=== PATIENT | male | born 1950 | race Caucasian/White ===

== ENCOUNTER → 2017-12-14 | Outpatient (REF) | payer MEDICARE ==
[2017-12-14 14:18] LABS: URIC ACID 3.7 MG/DL (3.5-7.2)
== END ==
LOC: M LAB REF 13:35
DX: M10.9 Gout, unspecified (principal)
CPT/HCPCS: 84550

== ENCOUNTER 2018-06-09 18:45 | Inpatient (IN) | payer MEDICARE ==
[~2018-06-09] VITALS: Ht 177.8 cm; Wt 145.6 kg
[~2018-06-09 18:45] MED LIST: ASPI325T25 PO; CALCTAB68 PO; CARV25TA PO; CYCL10TA PO; DIAZ5TAB PO; JANU100T PO; MAGN64TASA PO; METF10004 PO; MIRA3350 PO; OMEP20CA3 PO; PERC5TAB12 PO; REST0.05 OP; SENO8.6T5 PO; SIMV40TA2 PO; VITA100072 PO; VITMTA PO; ZYLO300T6 PO
[2018-06-09] MEDS ORDERED: NS 1,000 ML IV SCH ×2 (19:22→23:25)
[2018-06-09] MEDS ORDERED: ONDANSETRON 4MG/2ML VIAL (J2405) IV ONE (19:30)
[2018-06-09] MEDS ORDERED: MORPHINE 2 MG/ML 1ML SYRINGE (J2270) IV ONE (19:30)
[2018-06-09] MEDS ORDERED: KETOROLAC 30 MG/ML VIAL (J1885) IV ONE (19:30)
[2018-06-09 19:53] LABS: BASO # 0.1 10^3/uL (0.0-0.2); BASO % 0.5 % (0.0-1.0); EOS # 0.2 10^3/uL (0.0-0.50); EOS % 1.2 % (0.0-3.0); HEMATOCRIT 44.2 % (42.0-52.0); HEMOGLOBIN 14.3 g/dl (13.5-17.5); LYMPH # 2.1 10^3/uL (1.5-4.5); LYMPH % 13.5 % (24.0-44.0); MEAN CORPUSCULAR HEMOGLOBIN 30.4 pg (27.0-33.0); MEAN CORPUSCULAR HGB CONC 32.4 g/dl (32.0-36.5); MONO # 0.6 10^3/uL (0.0-0.8); NEUTROPHILS # 12.4 10^3/uL (1.8-7.7); NEUTROPHILS % 80.4 % (36.0-66.0); PLATELET COUNT, AUTOMATED 272 10^3/uL (150-450); WHITE BLOOD COUNT 15.4 10^3/uL (4.0-10.0)
[2018-06-09] MEDS ORDERED: AMAR1TAB PO (20:00)
--- NOTE | 2018-06-09 20:20 | REPVR ---
EXAM: CT Abdomen and Pelvis Without Contrast EXAM DATE/TIME: 06/09/2018 7:41 PM CLINICAL HISTORY: 67 years old, male; Pain; Abdominal pain; Flank; Right; Prior surgery; Surgery date: 6+ months; Surgery type: Bariatric bypass, hip; Additional info: Left renal colic TECHNIQUE: Imaging protocol: Axial computed tomography images of the abdomen and pelvis without contrast. Coronal and sagittal reformatted images were created and reviewed. Radiation optimization: All CT scans at this facility use at least one of these dose optimization techniques: automated exposure control; mA and/or kV adjustment per patient size (includes targeted exams where dose is matched to clinical indication); or iterative reconstruction. COMPARISON: CT ABD PELVIS W/O CONTRAST 08/16/2014 7:19 AM FINDINGS: Lower thorax: Small tree in bud opacity right lower lobe likely indicates age indeterminate alveolitis. ABDOMEN: Liver: Normal. No mass. Gallbladder and bile ducts: Gravel layers dependently within the lumen of the gallbladder. No gallbladder wall thickening. Pancreas: Normal. No ductal dilation. Spleen: Normal. No splenomegaly. Adrenals: Normal. No mass. Kidneys and ureters: Bilateral nonobstructive renal calculi. Right renal cyst measures 2.5 centimeters. There is are several calculi demonstrated in the proximal right ureter including an obstructive calculus measuring 10 millimeters resulting in moderate proximal hydroureteronephrosis. There is periureteral and perinephric stranding. Small amount of perinephric fluid may indicate a small urinoma. Stomach and bowel: This patient is status post gastric bypass surgery. Appendix: No evidence of appendicitis. PELVIS: Bladder: Unremarkable as visualized. Reproductive: Unremarkable as visualized. ABDOMEN and PELVIS: Intraperitoneal space: Hazy increased density in the central mesentery with mesenteric adenopathy measuring up to 11 millimeters. Findings can be demonstrated in association with mesenteric panniculitis in the appropriate clinical setting. Bones/joints: Status post left hip replacement. Moderate to severe central spinal stenosis and L3-4 and a severe spinal stenosis at L4-5. Bulging annulus L5-S1. Soft tissues: Unremarkable. Vasculature: The aorta demonstrates moderate atherosclerotic calcification. Lymph nodes: Normal. No enlarged lymph nodes. IMPRESSION: 1. Gravel layers dependently within the lumen of the gallbladder. No gallbladder wall thickening. 2. This patient is status post gastric bypass surgery. 3. There is are several calculi demonstrated in the proximal right ureter including an obstructive calculus measuring 10 millimeters resulting in moderate proximal hydroureteronephrosis. There is periureteral and perinephric stranding. Small amount of perinephric fluid may indicate a small urinoma. 4. Hazy increased density in the central mesentery with mesenteric adenopathy measuring up to 11 millimeters. Findings can be demonstrated in association with mesenteric panniculitis in the appropriate clinical setting. Electronically signed by: Ant Jarrell On 06/09/2018 20:20:04 PM
[2018-06-09 20:26] LABS: ALBUMIN 3.8 GM/DL (3.2-5.2); BILIRUBIN,DIRECT 0.2 MG/DL (0.0-0.2); BILIRUBIN,TOTAL 0.6 MG/DL (0.2-1.0); CREATININE FOR GFR 1.68 MG/DL (0.70-1.30); GLOMERULAR FILTRATION RATE 43.6 (>49); POTASSIUM SERUM 4.6 MEQ/L (3.5-5.1); TOTAL PROTEIN 7.3 GM/DL (6.4-8.2)
[2018-06-09] MEDS ORDERED: ASPI1TAB PO (22:49)
[2018-06-09] MEDS ORDERED: OCUVCAP2 PO (22:49)
[2018-06-09] MEDS ORDERED: FLAX10002 PO (22:49)
[2018-06-09] MEDS ORDERED: MORPHINE 4 MG/ML 1ML VIAL/SYRINGE (J2270) IV ONE (23:00)
[2018-06-09] MEDS ORDERED: ACETAMINOPHEN TAB 650MG DOSE (2X325MG) PO PRN (23:30)
[2018-06-09] MEDS ORDERED: MORPHINE 4 MG/ML 1ML VIAL/SYRINGE (J2270) IV PRN (23:30)
[2018-06-09] MEDS ORDERED: ONDANSETRON 4 MG TAB (S0181) PO PRN (23:30)
[2018-06-10] VITALS (9 sets, daily range): BP systolic 123–166; BP diastolic 64–87
[2018-06-10] MEDS: PERCOCET 5MG/325MG TAB PO PRN ×2 (01:59→09:22)
[2018-06-10] MEDS: CARVedilol 12.5 MG TAB PO SCH ×3 (02:00→20:36)
[2018-06-10] MEDS ORDERED: GLUCAGON FOR INJ 1 MG VIAL (J1610) SC PRN ×2 (04:45→18:45)
[2018-06-10] MEDS ORDERED: DEXTROSE 50% 50 ML SYRINGE IV PRN ×2 (04:45→18:45)
[2018-06-10] MEDS ORDERED: GLUCOSE 4 GM CHEW TABLET PO PRN ×2 (04:45→18:45)
--- NOTE | 2018-06-10 04:46 | HPEPDOC ---
[facility] Medical History & Physical Date of Admission Jun 09, 2018 History and Physical CHIEF COMPLAINT: [left sided abd pain ] HISTORY OF PRESENT ILLNESS: This is a 67 yo male with multiple pmhx listed below, who came in for severe left sided/flank pain 12/28 that started today, started in the flank and radiated towards the groin area. Associated symptoms include nausea, dry heaves, chills and sweat, but denied fever, headache, change in vision, dysuria, hematuria, diarrhea or constipation. He also complain of epigastric pain, which is chronic. Ros - all 14 point negative except for what's in HPI. 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 Previously smoke 2 and 1/2 ppd since age 12 ETOH: Denies Illicit Drugs: Denies No advanced directives in place FAMHX: Mother: age 38 secondary to OH. Hx of rheumatic fever Father: age 77 secondary to alcoholic cirrhosis Siblings: one sister age 70 secondary to CHF, morbid obesity, and DM. one brother age 72 secondary to unknown cause. one sister alive and well Physical Exam GEN: NAD , normal built HEENT: normocephalic, atraumatic, PERRLA, EOMI, external ears appears normal, neck supple, no pharyngeal erythema CVS : normal S1, S2 no murmur, rubs or gallops , PMI nondisplaced RESP: no rals, rhonchi, crackles, or wheezes, LCTAB ABD - +BS, soft, very tender in the left side of his abd and left flank, ND , ve ry obese abd , epigastric tenderness MSK no joint swelling, FROM, no muscle tenderness Neuro no focal deficit, AOAX3 Lymphatics- no lymphedema, no lymphadenopathy in cervical and supraclavicular chains Psych- normal mood and affect, good judgement and insight LABORATORY DATA: See below. IMAGING: [reviewed- ct abd and pelvis - IMPRESSION: 1. Gravel layers dependently within the lumen of the gallbladder. No gallbladder wall thickening. 2. This patient is status post gastric bypass surgery. 3. There is are several calculi demonstrated in the proximal right ureter including an obstructive calculus measuring 10 millimeters resulting in moderate proximal hydroureteronephrosis. There is periureteral and perinephric stranding. Small amount of perinephric fluid may indicate a small urinoma. 4. Hazy increased density in the central mesentery with mesenteric adenopathy measuring up to 11 millimeters. Findings can be demonstrated in association with mesenteric panniculitis in the appropriate clinical setting. ] MICROBIOLOGY: Please see below. ASSESSMENT and PLAN ct abd report stated stone in right ureter- based on my read the obstructive st one seems to be in the left, which correlates with with his symptoms - ivf -prn pain meds -zofran prn ' -urine is negative for UTI, will continue to monitor off abx -urologist already was consult by ED, will place official consult order DM2- hold po meds, will start iss and order hypoglycemic protocol hold aspirin for anticipated procedure tomorrow dvt ppx gi ppx full code, from home Vital Signs Vital Signs Date Time Temp Pulse Resp B/P (MAP) Pulse Ox O2 Delivery O2 Flow Rate FiO2 06/09/18 23:06 16 06/09/18 19:30 06/09/18 18:45 96.6 72 98 Room Air Laboratory Data Labs 24H Laboratory Tests 2 06/09/18 19:38: Immature Granulocyte % (Auto) 0.4, White Blood Count 15.4H, Red Blood Count 4.70, Hemoglobin 14.3, Hematocrit 44.2, Mean Corpuscular Volume 94.0, Mean Corpuscular Hemoglobin 30.4, Mean Corpuscular Hemoglobin Concent 32.4, Red Cell Distribution Width 13.7, Platelet Count 272, Neutrophils (%) (Auto) 80.4H, Lymphocytes (%) (Auto) 13.5L, Monocytes (%) (Auto) 4.0, Eosinophils (%) (Auto) 1.2, Basophils (%) (Auto) 0.5, Neutrophils # (Auto) 12.4H, Lymphocytes # (Auto) 2.1, Monocytes # (Auto) 0.6, Eosinophils # (Auto) 0.2, Basophils # (Auto) 0.1, Nucleated Red Blood Cells % (auto) 0.0, Urine Color YELLOW, Urine Appearance CLEAR, Urine pH 5.0, Urine Specific [place] 1.012, Urine Protein 1+H, Urine Glucose (UA) 1+H, Urine Ketones TRACEH, Urine Blood 2+H, Urine Nitrite NEGATIVE, Urine Bilirubin NEGATIVE, Urine Urobilinogen 0.2, Urine Leukocyte Esterase NEGATIVE, Urine WBC (Auto) 0, Urine RBC (Auto) 5H, Urine Hyaline Casts (Auto) 0, Urine Bacteria (Auto) NEGATIVE, Urine Squamous Epithelial Cells 1, Urine Sperm (Auto) , Anion Gap 10, Glomerular Filtration Rate 43.6L, Calcium Level 9.0, Aspartate Amino Transf (AST/SGOT) 22, Alanine Aminotransferase (ALT/SGPT) 32, Alkaline Phosphatase 131H, Total Bilirubin 0.6, Direct Bilirubin 0.2, Total Prot ein 7.3, Albumin 3.8, Albumin/Globulin Ratio 1.09, Lipase 369 CBC/BMP Laboratory Tests 06/09/18 19:38 Red Blood Count 4.70, Mean Corpuscular Volume 94.0, Mean Corpuscular Hemoglobin 30.4, Mean Corpuscular Hemoglobin Concent 32.4, Red Cell Distribution Width 13.7, Neutrophils (%) (Auto) 80.4 H, Lymphocytes (%) (Auto) 13.5 L, Monocytes (%) (Auto) 4.0, Eosinophils (%) (Auto) 1.2, Basophils (%) (Auto) 0.5, Neutrophils # (Auto) 12.4 H, Lymphocytes # (Auto) 2.1, Monocytes # (Auto) 0.6, Eosinophils # (Auto) 0.2, Basophils # (Auto) 0.1 Home Medications Scheduled (Flax Seed Oil 1000 mg) 1 Cap Cap, 1 CAP PO DAILY Allopurinol (Zyloprim) 300 Mg Tab, 300 MG PO DAILY Aspirin (Aspirin 81) 81 Mg Tab, 81 MG PO QHS Calcium/Vitamin D (Calcium 600 + D 600-400 mg-Unit) 1 Tab Tab, 1 TAB PO DAILY Carvedilol (Carvedilol) 25 Mg Tab, 50 MG PO QAM Carvedilol (Carvedilol) 25 Mg Tab, 25 MG PO QPM Cyanocobalamin (Vitamin B12) 1,000 Mcg Tab, 2,000 MCG PO DAILY Glimepiride (Amaryl) 1 Mg Tab, 1 MG PO DAILY Magnesium Chloride (Mag64) 64 Mg Tabcr, 64 MG PO BID Metformin Hydrochloride (Metformin HCl) 1,000 Mg Tab, 1,000 MG PO BID Multivitamins (Ocuvite Adult 50+) 1 Cap Cap, 1 CAP PO DAILY Multivitamins *[facility] STOCKED* (Thera M Plus *[facility] STOCKED*) 1 Tab Tab, 2 TAB PO DAILY Simvastatin - High Dose (Simvastatin) 40 Mg Tab, 40 MG PO QHS Sitagliptin Phosphate (Januvia) 100 Mg Tab, 100 MG PO DAILY Allergies Coded Allergies: No Known Allergies (Verified , 07/18/05) DANIEL MONTGOMERY MD Jun 09, 2018 23:36
[2018-06-10] MEDS: HEPARIN SOD (PORCINE) 5000 UNITS/ML VIAL SC SCH ×3 (05:41→20:35)
[2018-06-10 06:33] LABS: BASO # 0.1 10^3/uL (0.0-0.2); BASO % 0.4 % (0.0-1.0); EOS # 0.2 10^3/uL (0.0-0.50); EOS % 1.7 % (0.0-3.0); HEMATOCRIT 37.7 % (42.0-52.0); HEMOGLOBIN 12.4 g/dl (13.5-17.5); LYMPH # 2.5 10^3/uL (1.5-4.5); LYMPH % 20.9 % (24.0-44.0); MEAN CORPUSCULAR HEMOGLOBIN 30.8 pg (27.0-33.0); MEAN CORPUSCULAR HGB CONC 32.9 g/dl (32.0-36.5); MEAN CORPUSCULAR VOLUME 93.8 fl (80.0-96.0); MONO # 1.2 10^3/uL (0.0-0.8); MONO % 9.9 % (0.0-5.0); NEUTROPHILS # 8.1 10^3/uL (1.8-7.7); NEUTROPHILS % 66.7 % (36.0-66.0); PLATELET COUNT, AUTOMATED 217 10^3/uL (150-450); RED BLOOD COUNT 4.02 10^6/uL (4.30-6.10); WHITE BLOOD COUNT 12.2 10^3/uL (4.0-10.0)
[2018-06-10 06:54] LABS: CALCIUM LEVEL 8.5 MG/DL (8.8-10.2); CREATININE FOR GFR 1.95 MG/DL (0.70-1.30); GLOMERULAR FILTRATION RATE 36.7 (>49); MAGNESIUM LEVEL 1.8 MG/DL (1.8-2.4)
[2018-06-10] MEDS ORDERED: HumaLOG INSULIN (NovoLOG) PER UNIT SC SCH (07:30)
[2018-06-10] MEDS ORDERED: LR 1,000 ML IV SCH ×2 (08:15→19:00)
[2018-06-10] MEDS ORDERED: ALLOPURINOL 300 MG TAB PO SCH (09:00)
[2018-06-10] MEDS: MULTIVITAMINS/MINERALS THERAP 1 TAB PO SCH (09:09)
[2018-06-10] MEDS: PANTOPRAZOLE 40MG TAB (PROTONIX) PO SCH (09:10)
[2018-06-10] MEDS: SENOKOT S TAB PO SCH ×2 (09:10→20:36)
[2018-06-10] MEDS: OCUVITE 1 TAB PO SCH (09:11)
[2018-06-10] MEDS: CIPROFLOXACIN 200 MG in APPROPRIATE DILUENT 1 EA IV SCH ×2 (10:52→23:19)
[2018-06-10] MEDS: HumaLOG INSULIN (NovoLOG) PER UNIT SC SCH ×3 (12:00→20:37)
[2018-06-10] MEDS ORDERED: CONRAY-60 60% 50ML VIAL (Q9961) As Ordered ONE (13:27)
[2018-06-10 14:46] LABS: CALCIUM LEVEL 8.1 MG/DL (8.8-10.2); CREATININE FOR GFR 2.08 MG/DL (0.70-1.30); GLOMERULAR FILTRATION RATE 34.1 (>49); POTASSIUM SERUM 4.1 MEQ/L (3.5-5.1)
--- NOTE | 2018-06-10 14:46 | CR ---
DATE OF CONSULTATION: 06/10/2018 ROOM NUMBER: [id number] CONCLUSIONS: 1. Multiple left proximal ureteral calculi with obstruction, largest 1 cm in diameter. 2. Jmo-zlzxlkx-stfxgmzxq diabetes mellitus. 3. Coronary artery disease, status post pacemaker defibrillator placement. 4. Hypertension. 5. History of gout. 6. Morbid obesity with history of prior gastric bypass surgery. 7. Gastroesophageal reflux disease (GERD). RECOMMENDATIONS: I discussed the situation with the patient and explained the option to proceed with cystoscopy and placement of a left internal ureteral catheter to decompress the left collecting system to eliminate his pain. I explained that subsequent Extracorporeal shock wave lithotripsy (ESWL) can be carried out as an outpatient procedure, but that this procedure is not immediately available. I explained the technique of the procedure to the patient, along with the benefits, risks, alternatives, possible adverse effects. He wishes to go ahead and proceed with this today. DISCUSSION: The patient is a 67-year-old male with a prior history of renal calculi, who estimates that he has passed two kidney stones and has undergone ESWL on another occasion. Yesterday he had severe left flank pain with nausea and vomiting. He presented to the emergency room and a CT scan was performed, which demonstrates multiple calculi in the left proximal ureter, the largest is approximately 1 cm in diameter. He also has small bilateral nonobstructing renal calculi present. His pain has been poorly controlled since admission. He has noted no gross hematuria. He has had no fever. He has no history of urinary tract infection (UTI). PHYSICAL EXAMINATION: The patient is a large-framed, obese male lying in bed. No apparent distress, but feels costovertebral angle tenderness. Abdomen is grossly obese, soft and nontender. External genitalia: Normal male. LABORATORY RESULTS: Urinalysis is not suspicious for infection. Urinalysis showed a pH of 5, specific gravity 1.02, 1+ protein, 1+ glucose, 2+ hemoglobin, negative nitrate, negative esterase, 5 red cells per high powered field, no white cells. Negative bacteria. Serum creatinine is 1.68, BUN 22. White blood cell count on admission was 15,400, hemoglobin 14.3 grams, hematocrit 44.2%. Thank you for asking me to see this patient in consultation. We will follow him with you daily.
[2018-06-10] MEDS ORDERED: MIDAZOLAM INJ 2 MG/2 ML VIAL (J2250) As Ordered ONE (15:06)
[2018-06-10] MEDS ORDERED: PROPOFOL 200 MG/20 ML VIAL As Ordered ONE (15:06)
[2018-06-10] MEDS ORDERED: dexameTHASONE 4 MG/ML 1ML VIAL (J1100) As Ordered ONE (15:06)
[2018-06-10] MEDS ORDERED: LIDOCAINE 2% INJ 100 MG/5 ML SDV (FOR ANES.) As Ordered ONE (15:06)
[2018-06-10] MEDS ORDERED: ONDANSETRON 4MG/2ML VIAL (J2405) As Ordered ONE (15:06)
[2018-06-10] MEDS ORDERED: fentaNYL 100 MCG/2 ML INJECTION (J3010) As Ordered ONE (15:06)
[2018-06-10] MEDS ORDERED: ROCURONIUM BROMIDE 50 MG/5 ML VIAL As Ordered ONE (15:06)
[2018-06-10] MEDS ORDERED: SUCCINYLCHOLINE 100 MG/5 ML SYRINGE (J0330) As Ordered ONE (15:06)
[2018-06-10] MEDS ORDERED: ePHEDrine SULFATE 25 MG/5 ML(5MG/ML) SYRINGE As Ordered ONE (15:09)
[2018-06-10] MEDS ORDERED: PHENYLephrine HCL 500 MCG/5 ML (100MCG/ML) SYRINGE (J2370) As Ordered ONE (15:09)
[2018-06-10] MEDS: POTASSIUM CITRATE 1080 MG (10MEQ) TAB PO SCH (17:39)
[2018-06-10] MEDS: ASPIRIN 81 MG ENTERIC TAB PO SCH (20:36)
[2018-06-10] MEDS: SIMVASTATIN 40 MG TAB PO SCH (20:36)
[2018-06-11 02:00] VITALS: BP 136/60
[2018-06-11 05:46] LABS: HEMATOCRIT 40.2 % (42.0-52.0); HEMOGLOBIN 13.1 g/dl (13.5-17.5); MEAN CORPUSCULAR HEMOGLOBIN 30.1 pg (27.0-33.0); MEAN CORPUSCULAR HGB CONC 32.6 g/dl (32.0-36.5); MEAN CORPUSCULAR VOLUME 92.4 fl (80.0-96.0); PLATELET COUNT, AUTOMATED 228 10^3/uL (150-450); RED BLOOD COUNT 4.35 10^6/uL (4.30-6.10); WHITE BLOOD COUNT 10.5 10^3/uL (4.0-10.0)
[2018-06-11] MEDS: HEPARIN SOD (PORCINE) 5000 UNITS/ML VIAL SC SCH ×3 (05:49→22:09)
[2018-06-11 06:00] VITALS: BP 150/71
[2018-06-11 06:04] LABS: ALBUMIN 3.1 GM/DL (3.2-5.2); CALCIUM LEVEL 8.9 MG/DL (8.8-10.2); CREATININE FOR GFR 1.82 MG/DL (0.70-1.30); GLOMERULAR FILTRATION RATE 39.8 (>49); PHOSPHORUS LEVEL 3.3 MG/DL (2.5-4.9); POTASSIUM SERUM 4.7 MEQ/L (3.5-5.1)
[2018-06-11] MEDS: POTASSIUM CITRATE 1080 MG (10MEQ) TAB PO SCH ×2 (08:44→17:49)
[2018-06-11] MEDS: HumaLOG INSULIN (NovoLOG) PER UNIT SC SCH ×4 (08:44→21:00)
[2018-06-11] MEDS: OCUVITE 1 TAB PO SCH (08:46)
[2018-06-11] MEDS: CARVedilol 12.5 MG TAB PO SCH ×2 (08:46→21:22)
[2018-06-11] MEDS: SENOKOT S TAB PO SCH ×2 (08:46→21:21)
[2018-06-11] MEDS: MULTIVITAMINS/MINERALS THERAP 1 TAB PO SCH (08:46)
[2018-06-11] MEDS: PANTOPRAZOLE 40MG TAB (PROTONIX) PO SCH (08:46)
[2018-06-11] MEDS: LEVEMIR (INSULIN DETEMIR) 1 UNITS/0.01ML SC SCH (08:48)
[2018-06-11] MEDS: PERCOCET 5MG/325MG TAB PO PRN ×2 (08:49→15:44)
--- NOTE | 2018-06-11 09:31 | IPN ---
DATE OF SERVICE: 06/10/2018 The patient seen and examined. Reported pain mildly improved. Reported left-sided flank pain mildly improved after Percocet. Denies any chest pain, pressure, or discomfort. Denies any fevers or chills. VITAL SIGNS: Temperature 97.1, pulse 68, respiration 18, blood pressure 166/78, pulse oximetry 96% on room air. LABORATORY: WBC 12.2, hemoglobin and hematocrit 12.4/37.7, platelets 217. Chemistry: Sodium 138, potassium 4.1, chloride 107, bicarbonate 23, BUN 22, creatinine 2.08. PHYSICAL EXAMINATION: GENERAL: The patient obese, comfortable, in no acute distress. HEENT: Normocephalic, atraumatic. PULMONARY: Bilaterally clear. CARDIAC: Regular S1, S2. No rubs, gallops, or murmurs. ABDOMEN: Soft. Left-sided tenderness and left flank pain. Obese. EXTREMITIES: No edema in bilateral lower extremities. ASSESSMENT AND PLAN: This is a 67-year-old male patient with underlying medical history of noninsulin-dependent diabetes mellitus, coronary arterial disease with myocardial infarction ([place]) in 1994 and 2002, dyslipidemia, hypertension, gout, ureterolithiasis, morbid obesity, gastroesophageal reflux disease (GERD), presented with left-sided flank pain and left-sided abdominal pain, diagnosed with nephrolithiasis and obstructing stone. PROBLEMS: 1. Nephrolithiasis with obstructing uropathy due to stone. Pain medication. Intravenous (IV) fluids. Urology has been consulted. Urinalysis (UA) has been negative. Cipro for now. Will be undergoing cystoscopy with stent placement. Advance diet as tolerated. 2. Chronic renal insufficiency. IV fluids. Likely secondary to obstructive uropathy. Avoid nephrotoxic agent. IV fluids have been ordered. Will monitor clinically. 3. Diabetes type 2. Holding oral medication. Insulin as ordered. Consistent-carbohydrate diet. Follow fingersticks. 4. Coronary arterial disease. Continue aspirin, Coreg, statin. Outpatient followup. 5. Gastroesophageal reflux disease. Continue proton pump inhibitor (PPI). 6. Deep venous thrombosis (DVT) prophylaxis. Heparin subcutaneously. 7. Gout. Holding allopurinol given worsening kidney function. Will monitor closely. DISPOSITION: Disposition per urology. Clinical improvement. 8. Obesity, complicating care. Obstructive sleep apnea (DEISI) protocol is observed. [facility]
--- NOTE | 2018-06-11 09:42 | IPNPDOC ---
Subjective Date Seen The patient was seen on 06/11/18. Subjective Chief Complaint/HPI He has had no flank pain post procedure, he does have some dysuria. I explained that this is not unusual and will improve Objective Physical Examination General Exam: Positive: Other (male in bed in no apparent distress, conversive) Assessment /Plan Assessment 1 Left ureteral calculi , post placement of left internal ureteral catheter to relieve pain and obstruction, possibly uric acid in composition, discussed importance of increased hydration and alkalinization of urine with potassium citrate and baking soda supplements Plan/VTE VTE Prophylaxis Ordered?: Yes Disposition May be discharged at any time from urologic standpoint, advised follow up in Urology office later this week VS, I&O, 24H, Fishbone Vital Signs/I&O Vital Signs Date Time Temp Pulse Resp B/P (MAP) Pulse Ox O2 Delivery O2 Flow Rate FiO2 06/11/18 08:49 18 06/11/18 08:46 66 150/71 06/11/18 06:00 97.1 95 06/10/18 15:15 2 06/10/18 00:24 Room Air I&O- Last 24 Hours up to 6 AM 06/11/18 06:00 Intake Total 3147 ml Output Total 1600 ml Balance 1547 ml Laboratory Data 24H LABS Laboratory Tests 2 06/10/18 12:12: Bedside Glucose (Misc Panel) 172H 06/10/18 13:58: Anion Gap 8, Glomerular Filtration Rate 34.1L, Blood Urea Nitrogen 22H, Creatinine 2.08H, Sodium Level 138, Potassium Level 4.1, Chloride Level 107, Carbon Dioxide Level 23, Calcium Level 8.1L 06/10/18 16:22: Bedside Glucose (Misc Panel) 203H 06/10/18 20:17: Bedside Glucose (Misc Panel) 386H 06/11/18 05:14: Nucleated Red Blood Cells % (auto) 0.0, Blood Urea Nitrogen 20H, Creatinine 1.82H, Sodium Level 139, Potassium Level 4.7, Chloride Level 107, Carbon Dioxide Level 24, Anion Gap 8, Glomerular Filtration Rate 39.8L, Calcium Level 8.9, Phosphorus Level 3.3, Magnesium Level 2.0, Albumin 3.1L CBC/BMP Laboratory Tests 06/10/18 13:58 Calcium Level 8.1 L 06/11/18 05:14 Red Blood Count 4.35, Mean Corpuscular Volume 92.4, Mean Corpuscular Hemoglobin 30.1, Mean Corpuscular Hemoglobin Concent 32.6, Red Cell Distribution Width 13.6, Anion Gap 8 ELISSA EVANS MD Jun 11, 2018 09:42
[2018-06-11 10:00] VITALS: BP 158/76
--- NOTE | 2018-06-11 10:00 | REP ---
C-ARM VIEWS ABDOMEN: Two C-arm views of abdomen performed. There is a left ureteral stent with the proximal end coiled in the left mid abdomen. The distal end is not visualized. 23 seconds fluoroscopy time utilized. Electronically Signed by Reymundo Albright MD 06/11/2018 10:40 A
[2018-06-11] MEDS: CIPROFLOXACIN 200 MG in APPROPRIATE DILUENT 1 EA IV SCH ×2 (12:26→22:08)
[2018-06-11 14:00] VITALS: BP 165/82
--- NOTE | 2018-06-11 16:26 | IPNPDOC ---
Text Note Date of Service The patient was seen on 06/11/18. NOTE The patient seen and examined. Reported pain much improved. Voiding. Denies any chest pain, pressure, or discomfort. Denies any fevers or chills. PHYSICAL EXAMINATION: GENERAL: The patient obese, comfortable, in no acute distress. HEENT: Normocephalic, atraumatic. PULMONARY: Bilaterally clear. CARDIAC: Regular S1, S2. No rubs, gallops, or murmurs. ABDOMEN: Soft. Left-sided tenderness and left flank pain minimum. Obese. EXTREMITIES: No edema in bilateral lower extremities. ASSESSMENT AND PLAN: This is a 67-year-old male patient with underlying medical history of noninsulin-dependent diabetes mellitus, coronary arterial disease with myocardial infarction ([place]) in 1994 and 2002, dyslipidemia, hypertension, gout, ureterolithiasis, morbid obesity, gastroesophageal reflux disease (GERD), presented with left-sided flank pain and left-sided abdominal pain, diagnosed with nephrolithiasis and obstructing stone. PROBLEMS: 1. Nephrolithiasis with obstructing uropathy due to stone. Pain medication. Urology has been consulted. Urinalysis (UA) has been negative. Cipro for now. S/P cystoscopy with stent placement. symptoms resolving, Cr improved 2. acute on Chronic renal insufficiency. IV fluids. Likely secondary to obstructive uropathy. Avoid nephrotoxic agent. IV fluids have been given. Will monitor clinically. Cr improved 3. Diabetes type 2. Holding oral medication. Insulin as ordered. Consistent-carbohydrate diet. Follow fingersticks. 4. Coronary arterial disease. Continue aspirin, Coreg, statin. Outpatient followup. 5. Gout. Holding allopurinol given worsening kidney function. Will monitor closely. 6. Gastroesophageal reflux disease. Continue proton pump inhibitor (PPI). 7. Deep venous thrombosis (DVT) prophylaxis. Heparin subcutaneously. DISPOSITION: Disposition per urology. Clinical improvement. 8. Obesity, complicating care. Obstructive sleep apnea (DEISI) protocol is observed. VS,[place], I+O VS, Fishbone, I+O Laboratory Tests 06/11/18 05:14 Red Blood Count 4.35, Mean Corpuscular Volume 92.4, Mean Corpuscular Hemoglobin 30.1, Mean Corpuscular Hemoglobin Concent 32.6, Red Cell Distribution Width 13.6, Anion Gap 8 Vital Signs Date Time Temp Pulse Resp B/P (MAP) Pulse Ox O2 Delivery O2 Flow Rate FiO2 06/11/18 15:44 18 06/11/18 14:00 97.3 68 165/82 (109) 95 06/10/18 15:15 2 06/10/18 00:24 Room Air I&O- Last 24 Hours up to 6 AM 06/11/18 06:00 Intake Total 3147 ml Output Total 1600 ml Balance 1547 ml BEST CORBIN MD Jun 11, 2018 16:26
[2018-06-11] MEDS: ASPIRIN 81 MG ENTERIC TAB PO SCH (21:21)
[2018-06-11] MEDS: SIMVASTATIN 40 MG TAB PO SCH (21:21)
[2018-06-11 22:00] VITALS: BP 162/75
[2018-06-12] MEDS: HEPARIN SOD (PORCINE) 5000 UNITS/ML VIAL SC SCH (05:31)
[2018-06-12 05:58] LABS: HEMATOCRIT 38.7 % (42.0-52.0); HEMOGLOBIN 12.8 g/dl (13.5-17.5); MEAN CORPUSCULAR HEMOGLOBIN 30.6 pg (27.0-33.0); MEAN CORPUSCULAR HGB CONC 33.1 g/dl (32.0-36.5); MEAN CORPUSCULAR VOLUME 92.6 fl (80.0-96.0); PLATELET COUNT, AUTOMATED 227 10^3/uL (150-450); RED BLOOD COUNT 4.18 10^6/uL (4.30-6.10); WHITE BLOOD COUNT 11.6 10^3/uL (4.0-10.0)
[2018-06-12 06:00] VITALS: BP 156/79
[2018-06-12 06:26] LABS: CALCIUM LEVEL 8.9 MG/DL (8.8-10.2); CREATININE FOR GFR 1.59 MG/DL (0.70-1.30); GLOMERULAR FILTRATION RATE 46.5 (>49); MAGNESIUM LEVEL 1.9 MG/DL (1.8-2.4); PHOSPHORUS LEVEL 3.4 MG/DL (2.5-4.9); POTASSIUM SERUM 4.1 MEQ/L (3.5-5.1)
--- NOTE | 2018-06-12 07:44 | IPNPDOC ---
Subjective Date Seen The patient was seen on 06/12/18. Subjective Chief Complaint/HPI He is comfortable this am, still has some dysuria, very little left flank pain Objective Physical Examination General Exam: Positive: Alert, Cooperative, No Acute Distress, Other (male in bed in no apparent distress, conversive) Assessment /Plan Assessment multiple left ureteral calculi with obstruction proximal ureter, possibly uric acid in composition, post placement of left internal ureteral catheter Plan/VTE VTE Prophylaxis Ordered?: Yes Plan follow up in office to consider ESWL or possibly dissolution therapy with alkalinization of the urine VS, I&O, 24H, Fishbone Vital Signs/I&O Vital Signs Date Time Temp Pulse Resp B/P (MAP) Pulse Ox O2 Delivery O2 Flow Rate FiO2 06/12/18 06:00 98.2 62 20 156/79 (104) 94 06/10/18 15:15 2 06/10/18 00:24 Room Air I&O- Last 24 Hours up to 6 AM 06/12/18 06:00 Intake Total 1820 ml Output Total 2000 ml Balance -180 ml Laboratory Data 24H LABS Laboratory Tests 2 06/11/18 11:20: Bedside Glucose (Misc Panel) 226H 06/11/18 17:03: Bedside Glucose (Misc Panel) 174H 06/11/18 19:58: Bedside Glucose (Misc Panel) 229H 06/12/18 05:28: Nucleated Red Blood Cells % (auto) 0.0, Blood Urea Nitrogen 21H, Creatinine 1.59H, Sodium Level 141, Potassium Level 4.1, Chloride Level 107, Carbon Dioxide Level 27, Anion Gap 7L, Glomerular Filtration Rate 46.5L, Calcium Level 8.9, Phosphorus Level 3.4, Magnesium Level 1.9, Albumin 3.0L CBC/BMP Laboratory Tests 06/12/18 05:28 Red Blood Count 4.18 L, Mean Corpuscular Volume 92.6, Mean Corpuscular Hemoglobin 30.6, Mean Corpuscular Hemoglobin Concent 33.1, Red Cell Distribution Width 13.7, Anion Gap 7 L ELISSA EVANS MD Jun 12, 2018 07:44
[2018-06-12 08:30] VITALS: BP 156/79
[2018-06-12] MEDS: SENOKOT S TAB PO SCH (08:30)
[2018-06-12] MEDS: POTASSIUM CITRATE 1080 MG (10MEQ) TAB PO SCH (08:30)
[2018-06-12] MEDS: CARVedilol 12.5 MG TAB PO SCH (08:30)
[2018-06-12] MEDS: MULTIVITAMINS/MINERALS THERAP 1 TAB PO SCH (08:30)
[2018-06-12] MEDS: OCUVITE 1 TAB PO SCH (08:30)
[2018-06-12] MEDS: PANTOPRAZOLE 40MG TAB (PROTONIX) PO SCH (08:31)
[2018-06-12] MEDS: HumaLOG INSULIN (NovoLOG) PER UNIT SC SCH (08:31)
[2018-06-12] MEDS: LEVEMIR (INSULIN DETEMIR) 1 UNITS/0.01ML SC SCH (08:32)
--- NOTE | 2018-06-12 08:58 | RO ---
DATE OF PROCEDURE: 06/10/2018 PREOPERATIVE DIAGNOSIS: Multiple left proximal ureteral calculi with obstruction. POSTOPERATIVE DIAGNOSIS: Multiple left proximal ureteral calculi with obstruction. PROCEDURE: Cystourethroscopy with placement of left internal ureteral catheter. SURGEON: Dr. Geoff Zurita [employer]MBRE[employer] TIP[employer] MACHINE: ANESTHESIA: General oral endotracheal. COMPLICATIONS: None. DRAINS: Variable length x 6 [place] left internal ureteral catheter. SPECIMEN: None. HISTORY: The patient is a 67-year-old male who presents with severe left flank pain and found to have multiple calculi lodged in the left proximal ureter on CT imaging, the largest of which was 1 cm in diameter. The patient does have a history of gout. The options available for management were discussed with the patient including cystoscopy and placement of a left internal ureteral catheter as an initial step to alleviate his pain. The procedure was carefully explained to the patient along with the benefits, risks and alternatives. Informed consent was obtained. DESCRIPTION OF PROCEDURE: After successful anesthetization with a satisfactory level of general oral endotracheal anesthesia, the patient was placed in the dorsal lithotomy position on the operating table. The patient's genitalia were prepped and draped in a sterile manner using Betadine. The #22 [place] Olympus cystoscope sheath with the 30 degrees lens was inserted in the urethra and easily passed into the bladder. There was some wide caliber stricture present in the proximal bulbar urethra, but this easily allowed passage of the scope. The prostate was noted to be obstructing with lateral lobe enlargement meeting in the midline obstructing the bladder outlet and a small median lob protruding into the base of the bladder. The left ureteral orifice was identified and a 5 [place] open end ureteral catheter was used to advance a guidewire into the left renal collecting system easily proximal to the calculi. Over this, a variable length x 6 [place] left internal ureteral catheter was placed with the proximal end coiled in the left renal pelvis and the distal end coiled in the bladder. The bladder was then evacuated and the cystoscope was withdrawn. The patient was awakened and transported to the recovery room in satisfactory condition having tolerated this procedure well. DISPOSITION: The patient is to be discharged home with a left internal ureteral catheter in place. He is placed on potassium citrate to alkalinize the urine. This may be a situation where the calculi are uric acid. They may be favorable to dissolution with alkalinization of the urine. If not, then left extracorporal shock wave lithotripsy (ESWL) could be planned in the future.
[2018-06-12] MEDS ORDERED: SENN8.6T7 PO (09:39)
[2018-06-12] MEDS ORDERED: CIPR-249 PO (09:39)
[2018-06-12] MEDS ORDERED: CIPR-250 PO (09:42)
--- NOTE | 2018-06-12 18:29 | DSES ---
DATE OF ADMISSION: 06/09/2018 DATE OF DISCHARGE: 06/12/2018 UROLOGIST: Dr. Zurita PRIMARY CARE PROVIDER: Josh Chan FINAL DIAGNOSIS: Nephrolithiasis with obstructive uropathy due to stone, acute on chronic renal insufficiency due to obstructive uropathy, diabetes type 2, coronary artery disease, gout, morbid obesity and GERD. HISTORY OF PRESENT ILLNESS: This is a 67-year-old male patient with underlying medical history of insulin dependant diabetes, morbid obesity, coronary artery disease with NC, GERD, hypertension, gout, ureterolithiasis who presented with severe left sided flank pain and left sided abdominal pain 10/10 which started on the day of admission radiating towards patient's groin associated with nausea, dry heaving, chills, and sweats. He denies any fever, headache, change in vision, dysuria, diarrhea or constipation. Patient also complaint of epigastric pain. CT scan was done showing patient having multiple calculus in the patient's right ureter with an obstructing calculus measuring 10 mm with hydroureteronephrosis. UA was negative. Urology was consulted and taken to the OR for stent placement with urology. IV fluids were also given. Empiric antibiotic was also given. Patient's kidney function was monitored closely. Patient initial had acute on chronic renal failure with IV fluids and after resolution of obstructive uropathy patient's kidney function improved. DEISI protocol given patient is morbidly obese. Patient diabetes was managed, insulin basal bolus dosage was provided. Patient currently tolerating oral intake, able to ambulate and ready to be discharged for further care as outpatient. VITAL SIGNS: Temperature 98.2, pulse 62, respirations 20, blood pressure 156/79, pulse ox 94 on room air. LABORATORY: WBC 11.6, hemoglobin and hematocrit 12.8 over 38.7, platelets 227, chemistry sodium 141, potassium 4.1, chloride 107, Bicarbonate 27, BUN 21, creatinine 1.59. GENERAL: Patient morbidly obese in no acute distress. HEENT: Normocephalic, atraumatic. PULMONARY: Bilateral clear. CARDIAC: Regular S1, S2. ABDOMEN: Soft, obese and nontender and positive bowel sounds. EXTREMITIES: No clubbing, cyanosis or edema. DISCHARGE MEDICATIONS: Cipro 250 mg by mouth twice a day for 3 more days, Senna Plus 2 tablets by mouth at bedtime, aspirin 81 mg by mouth at bedtime, calcium vitamin D by mouth daily, Coreg 50 mg in the morning and 25 mg in the evening., vitamin B12 2000 mcg by mouth daily, Flax seed oil 1000 mg by mouth daily, glimepiride 1 mg by mouth daily, magnesium chloride 64 mg by mouth twice a day, metformin 1,000 mg by mouth twice a day, Ocuvite 1 tablet by mouth daily, multivitamin 2 tablets by mouth daily, Zocor 40 mg by mouth at bedtime. Januvia 100 mg by mouth daily. DISCHARGE INSTRUCTIONS: Please see primary care provider in 5 days, further glucose control as per primary care provider. Please see urology in 7 days, please check kidney function with primary care provider in the next 5-7 days. Please return if symptoms worsen or hydration. Restart allopurinol once the patient's kidney function improves as per primary care provider.
== END 2018-06-12 10:20 | disposition home health service (06) | DRG 694 ==
LOC: M ED 18:45 → M ED INP 23:25 → M MS5PR 06-10 00:50
PROVIDERS: ADMIT Internal Medicine; ATTEND Hospitalist
PROC: 0T9780Z Drainage of Left Ureter with Drainage Device, Via Natural or Artificial Opening Endoscopic (ICD-10-PCS; principal; 2018-06-10 14:30)
DX: N13.1 Hydronephrosis with ureteral stricture, not elsewhere classified (principal); Z68.42 Body mass index [BMI] 45.0-49.9, adult; E11.22 Type 2 diabetes mellitus with diabetic chronic kidney disease; I25.10 Atherosclerotic heart disease of native coronary artery without angina pectoris; E78.00 Pure hypercholesterolemia, unspecified; I12.9 Hypertensive chronic kidney disease with stage 1 through stage 4 chronic kidney disease, or unspecified chronic kidney disease; M10.9 Gout, unspecified; N17.9 Acute kidney failure, unspecified; E66.01 Morbid (severe) obesity due to excess calories; K21.9 Gastro-esophageal reflux disease without esophagitis; N18.9 Chronic kidney disease, unspecified; I25.2 Old myocardial infarction; Z96.642 Presence of left artificial hip joint; Z98.84 Bariatric surgery status; Z95.810 Presence of automatic (implantable) cardiac defibrillator; Z87.891 Personal history of nicotine dependence; Z79.82 Long term (current) use of aspirin; Z79.84 Long term (current) use of oral hypoglycemic drugs

== ENCOUNTER → 2018-07-11 | Outpatient (CLI) | payer MEDICARE ==
[~2018-07-11] MED LIST changes: +AMAR1TAB PO; +ASPI-255 PO; -ASPI325T25 PO; +ASPI81TA26 PO; +CIPR-249 PO; +CIPR-250 PO; +FLAX10002 PO; +OCUVCAP2 PO; +SENN1TAB41 PO; +VITA100018 PO; -VITA100072 PO
--- NOTE | 2018-07-11 10:10 | REP ---
Chest two views HISTORY: Ureteral stone Comparison: 10/20/2010 The lungs are clear. The heart is normal in size. The pulmonary vasculature is normal in appearance. The bony structure is intact. A cardiac pacemaker is present. IMPRESSION: No acute disease. Electronically Signed by Sam Colon MD 07/11/2018 10:01 A
[2018-07-11 16:06] LABS: CALCIUM LEVEL 8.9 MG/DL (8.8-10.2); CREATININE FOR GFR 1.53 MG/DL (0.70-1.30); GLOMERULAR FILTRATION RATE 48.6 (>49); POTASSIUM SERUM 5.3 MEQ/L (3.5-5.1)
[2018-07-11 16:16] LABS: HEMATOCRIT 42.1 % (42.0-52.0); HEMOGLOBIN 13.5 g/dl (13.5-17.5); MEAN CORPUSCULAR HEMOGLOBIN 30.3 pg (27.0-33.0); MEAN CORPUSCULAR HGB CONC 32.1 g/dl (32.0-36.5); MEAN CORPUSCULAR VOLUME 94.4 fl (80.0-96.0); PLATELET COUNT, AUTOMATED 221 10^3/uL (150-450); RED BLOOD COUNT 4.46 10^6/uL (4.30-6.10); WHITE BLOOD COUNT 10.9 10^3/uL (4.0-10.0)
[2018-07-11 16:29] LABS: APPEARANCE, URINE MANUAL TURBID (CLEAR)
[2018-07-11 16:30] LABS: COLOR, URINE MANUAL BROWN (YELLOW); GLUCOSE, URINE (UA) MANUAL NEGATIVE (NEGATIVE); KETONE, URINE MANUAL NEGATIVE (NEGATIVE); PROTEIN, URINE MANUAL 3+ mg/dL (NEGATIVE); UROBILINOGEN, URINE MANUAL NORMAL (NORMAL)
[2018-07-11 16:31] LABS: BILIRUBIN, URINE MANUAL NEGATIVE (NEGATIVE); BLOOD URINE MANUAL POSITIVE (NEGATIVE); LEUKOCYTE ESTERASE, URINE MAN POSITIVE (NEGATIVE); NITRITE, URINE MANUAL NEGATIVE (NEGATIVE)
[2018-07-11 16:40] LABS: RBC, URINE TNTC /hpf (0-3)
[2018-07-11 16:41] LABS: BACTERIA, URINE SMALL AMOUNT; HYALINE CAST, URINE NONE SEEN /lpf (0-1); SQUAMOUS EPITHELIAL CELL URINE NONE SEEN /hpf (SMALL AMT)
[2018-07-11 20:46] LABS: INR 1.04; PROTHROMBIN TIME 13.7 SECONDS (12.1-14.4)
[2018-07-11 20:54] LABS: PARTIAL THROMBOPLASTIN TIME 37.4 SECONDS (25.4-37.6)
== END ==
LOC: M SMT 09:41
PROVIDERS: ATTEND Nurse Practitioner Women's Health
DX: Z01.818 Encounter for other preprocedural examination (principal); N13.2 Hydronephrosis with renal and ureteral calculous obstruction; Z79.82 Long term (current) use of aspirin

== ENCOUNTER 2018-07-19 05:59 | Day surgery (SDC) | payer MEDICARE ==
[~2018-07-19] VITALS: Ht 177.8 cm; Wt 144.2 kg
[2018-07-19] MEDS ORDERED: LR 1,000 ML IV ONE (06:00)
[2018-07-19] MEDS ORDERED: ceFAZolin SOD 1 GM in D5W MINI-BAG PLUS 50 ML IV ONE (06:00)
[2018-07-19] MEDS ORDERED: PROPOFOL 200 MG/20 ML VIAL As Ordered ONE (07:08)
[2018-07-19] MEDS ORDERED: LIDOCAINE 2% INJ 100 MG/5 ML SDV (FOR ANES.) As Ordered ONE (07:08)
[2018-07-19] MEDS ORDERED: ONDANSETRON 4MG/2ML VIAL (J2405) As Ordered ONE (07:09)
[2018-07-19] MEDS ORDERED: dexameTHASONE 4 MG/ML 1ML VIAL (J1100) As Ordered ONE (07:09)
[2018-07-19] MEDS ORDERED: CONRAY-60 60% 50ML VIAL (Q9961) As Ordered ONE (07:11)
[2018-07-19] MEDS ORDERED: fentaNYL 100 MCG/2 ML INJECTION (J3010) As Ordered ONE (07:11)
[2018-07-19] MEDS ORDERED: MIDAZOLAM INJ 2 MG/2 ML VIAL (J2250) As Ordered ONE (07:12)
[2018-07-19] MEDS ORDERED: ROCURONIUM BROMIDE 50 MG/5 ML VIAL As Ordered ONE (07:33)
[2018-07-19] MEDS ORDERED: ePHEDrine SULFATE 25 MG/5 ML(5MG/ML) SYRINGE As Ordered ONE (07:50)
[2018-07-19] MEDS ORDERED: PHENYLephrine HCL 500 MCG/5 ML (100MCG/ML) SYRINGE (J2370) As Ordered ONE (07:57)
[2018-07-19] MEDS ORDERED: SUGAMMADEX SODIUM 500 MG/5 ML VIAL (BRIDION) As Ordered ONE (08:08)
[2018-07-19] MEDS ORDERED: KETOROLAC 60 MG/2 ML VIAL (J1885) As Ordered ONE (08:08)
[2018-07-19] MEDS: PERCOCET 5MG/325MG TAB PO PRN ×2 (09:50→10:20)
[2018-07-19] MEDS ORDERED: ONDANSETRON 4MG/2ML VIAL (J2405) IV PRN (10:00)
[2018-07-19] MEDS ORDERED: PERCOCET 5MG/325MG TAB PO PRN ×2 (10:00)
[2018-07-19] MEDS ORDERED: LR 1,000 ML IV SCH (10:00)
[2018-07-19] MEDS: fentaNYL 100 MCG/2 ML INJECTION (J3010) IV PRN ×4 (10:05→10:20)
--- NOTE | 2018-07-19 10:17 | REP ---
C-ARM VIEWS DURING PLACEMENT OF BILATERAL URETERAL STENTS: Six C-ARM views are performed. Contrast is injected into partially opacified pelvicaliceal systems. Bilateral ureteral stents are placed. The proximal ends of each stent are coiled in the renal pelvis bilaterally and the distal ends are coiled in the urinary bladder. 48 seconds of fluoroscopy time was utilized. Electronically Signed by Reymundo Albright MD 07/21/2018 11:43 A
[2018-07-19] MEDS ORDERED: HumaLOG INSULIN (NovoLOG) PER UNIT SC ONE (12:00)
[2018-07-19] MEDS ORDERED: ONDANSETRON 4MG/2ML VIAL (J2405) IV ONE (12:00)
[2018-07-19 12:40] VITALS: BP 138/67
--- NOTE | 2018-07-20 07:32 | RO ---
DATE OF PROCEDURE: 07/19/2018 PREPROCEDURE DIAGNOSIS: Bilateral kidney and ureteral stones. POSTPROCEDURE DIAGNOSIS: Bilateral kidney and ureteral stones. PROCEDURE: Cystoscopy, bilateral ureteroscopy with laser lithotripsy and basket extraction of stones, bilateral retrograde pyelogram with intraoperative interpretation of images, bilateral ureteral stent placement. SURGEON: Dr. Pedro Lomas. ODD JOB WORKER: None. ANESTHESIA: General. OPERATIVE INDICATION: This is a 67-year-old male who presented to the hospital a few weeks ago with a left-sided flank pain and was found to have obstructing proximal left ureteral stones. A left ureteral stent was placed a that time. He also had a nonobstructing right kidney stone measuring up to 8 mm in size. He was brought to the operating room today for the above listed procedure. DESCRIPTION OF PROCEDURE: The patient brought to the operating room and general anesthesia was induced. Prophylactic antibiotics infused. He was then placed in dorsal lithotomy position in preparation for the above listed procedure. He was then prepped and draped in the usual sterile fashion. A rigid cystoscope was inserted through the urethral meatus and advanced through the bladder. Once inside the bladder, the previously placed left ureteral stent was seen. The stent was then grasped and withdrawn till the distal end was seen protruding from the urethral meatus. I then advanced a wire up the left collecting system and then removed the stent completely. A ureteral access sheath was then advanced up the left collecting system. I went up the access sheath with the flexible ureteroscope and within the proximal ureter approximately 3 to 4 stones were seen measuring up to 6-7 mm in size. The smaller stones were removed with a basket. The larger stone was then fragmented with a 200 micron laser fiber and all the fragments were removed. I then examined the rest of the left kidney and any additional stone fragments were removed using the basket. A retrograde pyelogram was then performed and it was notable for mild to moderate left hydronephrosis with no extravasation. At this point, the ureteroscope was withdrawn along with the access sheath and no additional stones were see within the ureter. The wire was then utilized to advance a 6-Italian x 22-32 cm JJ ureteral stent up into the left collecting system. The wire was then removed and there were adequate curls of the stent in the left renal pelvis and in the bladder. I then advanced the wire up the right collecting system. I then advanced the ureteral access sheath over the wire. I went of the access sheath with the flexible ureteral scope and examined the right kidney thoroughly. Approximately three stones were seen with two of them being very small. The smaller ones were removed using a basket. The largest stone was approximately 8 mm in size in the lower pole [place]. The stone was then basketed and repositioned into the renal pelvis. It was then fragmented into smaller pieces using 200 micron laser fibers. All the fragments were then removed using a basket. Once I was satisfied all the fragments were removed, a retrograde pyelogram was performed and notable for mild right hydronephrosis with no extravasation. I then withdrew the ureteroscope along with access sheath and on additional stones were seen within the ureter. I then utilized the wire to advanced a 6-Italian x 22-32 cm JJ ureteral stent up into the right collecting system. The wire was then removed and there were adequate curls of the stent in the right renal pelvis and the bladder. The bladder was drained of all fluids and this marked the conclusion of the procedure. The patient was then taken out of the dorsal lithotomy position, awakened from anesthesia and transported to the recovery room in stable condition. ESTIMATED BLOOD LOSS: 5 mL. COMPLICATIONS: None. SPECIMENS: Kidney stone fragments. PLAN: The patient will followup in the clinic in approximately 1 week for stent removal. DAGMAR
== END 2018-07-19 12:57 | disposition home or self-care (01) ==
LOC: M SDC 05:59
PROVIDERS: ATTEND Urology
DX: N20.2 Calculus of kidney with calculus of ureter (principal); I11.0 Hypertensive heart disease with heart failure; I50.9 Heart failure, unspecified; I25.5 Ischemic cardiomyopathy; E11.40 Type 2 diabetes mellitus with diabetic neuropathy, unspecified; E03.9 Hypothyroidism, unspecified; D64.9 Anemia, unspecified; M10.9 Gout, unspecified; K21.9 Gastro-esophageal reflux disease without esophagitis; E78.00 Pure hypercholesterolemia, unspecified; I25.10 Atherosclerotic heart disease of native coronary artery without angina pectoris; I25.2 Old myocardial infarction; Z79.899 Other long term (current) drug therapy; Z79.82 Long term (current) use of aspirin; Z79.84 Long term (current) use of oral hypoglycemic drugs; Z95.810 Presence of automatic (implantable) cardiac defibrillator; Z87.891 Personal history of nicotine dependence; Z96.642 Presence of left artificial hip joint; Z98.84 Bariatric surgery status; Z95.1 Presence of aortocoronary bypass graft

== ENCOUNTER → 2018-07-26 | Outpatient (CLI) | payer MEDICARE ==
[2018-07-26 13:38] LABS: CREATININE FOR GFR 1.71 MG/DL (0.70-1.30); GLOMERULAR FILTRATION RATE 42.7 (>49); POTASSIUM SERUM 5.2 MEQ/L (3.5-5.1)
== END ==
LOC: M SMT 11:00
PROVIDERS: ATTEND Specialist
DX: N13.2 Hydronephrosis with renal and ureteral calculous obstruction (principal)
CPT/HCPCS: 36415; 52310; 80048; G0463

== ENCOUNTER → 2018-08-18 | Outpatient (CLI) | payer MEDICARE ==
--- NOTE | 2018-08-18 11:18 | REP ---
RENAL AND BLADDER ULTRASOUND: Real-time sonographic evaluation of the kidneys performed and demonstrates both kidneys to be normal in size and echotexture, right kidney measuring 1.8 x 5.8 x 5.1 cm and left kidney 12.7 x 6.1 x 4.8 cm. There is no hydronephrosis bilaterally. Cyst in the upper pole of the right kidney measures 1.6 x 1.6 x 1.9 cm and there are two cysts in the lower pole of the right kidney measuring 2.5 and 1.9 cm in maximum diameter. The cyst in the mid left kidney measures 3.0 x 2.6 x 2.3 cm. Study is somewhat limited due to patient body habitus. Urinary bladder is minimally distended and is not optimally evaluated. IMPRESSION: Bilateral renal cysts. No hydronephrosis. Electronically Signed by Reymundo Albright MD 08/18/2018 04:13 P
== END ==
LOC: M RAD 08:17
PROVIDERS: ATTEND Specialist
DX: N13.2 Hydronephrosis with renal and ureteral calculous obstruction (principal)

== ENCOUNTER → 2020-05-15 | Outpatient (REF) | payer MEDICARE, BC ==
[~2020-05-15] MED LIST changes: +CYCL-707 PO; -CYCL10TA PO; +OMEP1CAP73 PO; -OMEP20CA3 PO; -SIMV40TA2 PO; +SIMV40TA20 PO
[2020-05-22 13:14] LABS: FERRITIN 12 NG/ML (26-388); IRON (FE) 37 UG/DL (65-175); TOTAL IRON BINDING CAPACITY 413 UG/DL (250-450)
[2020-05-22 13:42] LABS: VITAMIN B12 LEVEL > 2000 PG/ML
[2020-05-22 13:43] LABS: FOLATE > 24.0 NG/ML
== END ==
LOC: M LAB REF 12:19
PROVIDERS: ATTEND Family Medicine
DX: D64.9 Anemia, unspecified (principal)

== ENCOUNTER → 2020-11-26 | Outpatient (CLI) | payer MEDICARE, BC ==
[~2020-11-26] MED LIST changes: +E-Z-GAS II EFFERVESCENT PACKET (SODIUM BICARB./CITRIC ACID/SIMETHICONE) As Ordered ONE; +E-Z-HD 98% w/w 340GM SUSP BTL As Ordered ONE; +E-Z-PAQUE 96% w/w SUSP 176GM BTL As Ordered ONE
--- NOTE | 2020-11-26 16:26 | REP ---
INDICATION: IRON DEFICIENCY ANEMIA. COMPARISON: None. TECHNIQUE: The procedure was performed under the direct supervision of Dr. Albright. The images were reviewed with Dr. Albright. Liquid barium was given in the erect position as well as liquid barium in the prone oblique position in order to perform a single contrast upper GI examination. Additionally liquid barium was given at the end of the examination in order to perform a small bowel follow through. A combination od fluoroscopy, spot films and last image hold technology was utilized, 1.7 minutes of fluoro time was utilized for this procedure. FINDINGS: The drywall hanger helper film shows no organomegaly or pathological masses. The intestinal gas pattern is non-specific. The patient is status post left hip arthroplasty. The oral and pharyngeal stages of deglutition are unremarkable. Esophageal transport is prompt and efficient and there is no esophagitis, stricture, mucosal ring or hiatal hernia. There is gastroesophageal reflux demonstrated to the level of the thoracic inlet.. The patient is status post gastric bypass. Contrast passes through the pouch and anastomosis without delay. There is no evidence of gastritis neoplasm or ulcer disease. The visualized portion of the proximal small bowel appears normal in course and caliber. There is barium seen refluxing into the stomach. The barium column was followed through the small bowel to the level of the terminal ileum. Small bowel transit time is approximately 40 minutes. During fluoroscopy gentle palpation shows all loops are freely movable and pliable. There are no fixed or angulated loops. The small bowel mucosal pattern is normal in course and caliber. There is no transition to suggest a partial small-bowel obstruction. Spot filming of the terminal ileum shows it to be unremarkable. IMPRESSION: Patient is status post gastric bypass. There is gastroesophageal reflux demonstrated to the level of the thoracic inlet.. <Electronically signed by Low Torres > 11/26/20 1540 <Electronically signed by Reymundo Albright > 11/26/20 1629
== END ==
LOC: M RAD 08:35
PROVIDERS: ATTEND Family Medicine
DX: D50.9 Iron deficiency anemia, unspecified (principal)

== ENCOUNTER → 2021-04-17 | Outpatient (REF) | payer MEDICARE, BC ==
[~2021-04-17] MED LIST changes: -E-Z-GAS II EFFERVESCENT PACKET (SODIUM BICARB./CITRIC ACID/SIMETHICONE) As Ordered ONE; -E-Z-HD 98% w/w 340GM SUSP BTL As Ordered ONE; -E-Z-PAQUE 96% w/w SUSP 176GM BTL As Ordered ONE
== END ==
LOC: M LAB REF 12:56
PROVIDERS: ATTEND Internal Medicine Nephrology
DX: E83.42 Hypomagnesemia (principal)

== ENCOUNTER → 2022-01-14 | Outpatient (REF) | payer MEDICARE, BC | LOC: M LAB REF 12:00 | PROVIDERS: ATTEND Family Medicine | DX: M10.9 Gout, unspecified (principal) ==

== ENCOUNTER 2022-10-10 13:19 | Inpatient (IN) | payer MEDICARE, BC ==
[~2022-10-10] VITALS: Ht 177.8 cm; Wt 153.2 kg
[2022-10-10] MEDS ORDERED: NS 1,000 ML IV ONE (13:35)
[2022-10-10] MEDS ORDERED: PANTOPRAZOLE 40MG VIAL IV ONE (13:35)
[2022-10-10 14:16] LABS: VENOUS HCO3 15.4 MMOL/L (23.0-27.0); VENOUS O2 SATURATION 97.4 % (60.0-80.0); VENOUS PARTIAL PRESSURE CO2 32.1 mmHg (38.0-50.0); VENOUS PARTIAL PRESSURE O2 110.1 mmHg (30.0-50.0); VENOUS PH 7.299 UNITS (7.330-7.430); VENOUS STANDARD HCO3 16.4 MMOL/L; VENOUS TOTAL CO2 16.4 MMOL/L (24.0-28.0)
[2022-10-10 14:22] LABS: BASO # 0.1 10^3/uL (0.0-0.2); BASO % 0.6 % (0.0-1.0); EOS # 0.2 10^3/uL (0.0-0.5); EOS % 1.2 % (0.0-3.0); HEMATOCRIT 29.5 % (42.0-52.0); HEMOGLOBIN 9.5 g/dl (13.5-17.5); LYMPH # 3.6 10^3/uL (1.5-5.0); LYMPH % 22.3 % (24.0-44.0); MEAN CORPUSCULAR HEMOGLOBIN 31.6 pg (27.0-33.0); MEAN CORPUSCULAR HGB CONC 32.2 g/dl (32.0-36.5); MONO # 1.1 10^3/uL (0.0-0.8); MONO % 6.4 % (2.0-8.0); NEUTROPHILS # 11.3 10^3/uL (1.5-8.5); NEUTROPHILS % 68.9 % (36.0-66.0); PLATELET COUNT, AUTOMATED 215 10^3/uL (150-450); RED BLOOD COUNT 3.01 10^6/uL (4.30-6.10); WHITE BLOOD COUNT 16.3 10^3/uL (4.0-10.0)
[2022-10-10 14:35] LABS: INR 1.16
[2022-10-10 14:36] LABS: PARTIAL THROMBOPLASTIN TIME 28.8 SECONDS (24.8-34.2)
[2022-10-10 14:56] LABS: CK-MB VALUE MASS < 1.0 NG/ML (<3.6); LIPASE 48 U/L (12-53)
[2022-10-10 14:57] LABS: CPK CREATINE PHOSPHOKINASE 25 U/L (46-171)
[2022-10-10 14:59] LABS: RSV AMPLIFICATION NEGATIVE (NEGATIVE)
[2022-10-10] MEDS ORDERED: SODIUM BICARBONATE 8.4% INJ 50ML SYRINGE IV STA ×2 (15:01→20:34)
[2022-10-10] MEDS ORDERED: HumuLIN R (REGULAR) INSULIN (NovoLIN R) **100U/ML** PER UNIT IV STA ×2 (15:01→20:34)
[2022-10-10] MEDS ORDERED: DEXTROSE 50% 50ML SYRINGE IV STA ×2 (15:01→20:34)
[2022-10-10 15:02] LABS: ALBUMIN 2.8 G/DL (3.2-5.2); ALKALINE PHOSPHATASE 98 U/L (46-116); ALT/SGPT 18 U/L (7.0-40); AST/SGOT 12 U/L (<34); BILIRUBIN,TOTAL 0.4 MG/DL (0.3-1.2); BLOOD UREA NITROGEN 48 MG/DL (9-23); CALCIUM LEVEL 7.9 MG/DL (8.3-10.6); CARBON DIOXIDE LEVEL 17 MMOL/L (20-31); CHLORIDE LEVEL 111 MMOL/L (98-107); GLOMERULAR FILTRATION RATE 42.4 (>42); GLUCOSE, FASTING 394 MG/DL (74-106); POTASSIUM SERUM 6.5 MMOL/L (3.5-5.1); SODIUM LEVEL 139 MMOL/L (136-145)
[2022-10-10] MEDS ORDERED: GLUCAGON INJ 1MG VIAL SC PRN (15:05)
[2022-10-10] MEDS ORDERED: DEXTROSE 50% 50ML SYRINGE IV PRN (15:05)
[2022-10-10] MEDS ORDERED: CALCIUM CHLORIDE 10% 1 GM in D5W 100 ML IV ONE (15:05)
[2022-10-10] MEDS ORDERED: GLUCOSE 4GM CHEW TABLET PO PRN (15:05)
[2022-10-10] MEDS ORDERED: MED REC IN PROGRESS XX SCH (15:10)
[2022-10-10] MEDS ORDERED: propofoL 200 MG/20 ML VIAL As Ordered ONE (15:20)
[2022-10-10] MEDS ORDERED: fentaNYL 100 MCG/2 ML INJECTION As Ordered ONE (15:20)
[2022-10-10] MEDS ORDERED: LIDOCAINE 2% 100MG/5ML SDV (FOR ANES.) As Ordered ONE (15:21)
[2022-10-10] MEDS ORDERED: GLYCOPYRROLATE INJ 0.2 MG/ML 2 ML VIAL As Ordered ONE (15:21)
[2022-10-10] MEDS ORDERED: ALLO300T2 PO (15:33)
[2022-10-10] MEDS ORDERED: VALS80TA PO (15:33)
[2022-10-10 15:34] LABS: MB/CK RELATIVE INDEX 3.84 (< OR =4)
[2022-10-10] MEDS: NS 1,000 ML IV SCH (15:34)
[2022-10-10] MEDS ORDERED: HOME MED LIST COMPLETE! XX SCH (15:35)
[2022-10-10] MEDS ORDERED: CIPROFLOXACIN 400 MG in IV 1 EA IV ONE (16:20)
[2022-10-10] MEDS ORDERED: metroNIDAZOLE 500 MG in IV 1 EA IV ONE (16:20)
[2022-10-10] MEDS ORDERED: INSULIN LISPRO (NovoLOG) PER UNIT SC SCH (17:30)
[2022-10-10] MEDS: INSULIN LISPRO (NovoLOG) PER UNIT SC SCH ×2 (17:41→23:45)
[2022-10-10 17:54] LABS: HEMATOCRIT 33.6 % (42.0-52.0); HEMOGLOBIN 10.8 g/dl (13.5-17.5); MEAN CORPUSCULAR HEMOGLOBIN 30.8 pg (27.0-33.0); MEAN CORPUSCULAR HGB CONC 32.1 g/dl (32.0-36.5); MEAN CORPUSCULAR VOLUME 95.7 fl (80.0-96.0); PLATELET COUNT, AUTOMATED 164 10^3/uL (150-450); RED BLOOD COUNT 3.51 10^6/uL (4.30-6.10); WHITE BLOOD COUNT 12.7 10^3/uL (4.0-10.0)
[2022-10-10 18:26] LABS: CREATININE FOR GFR 1.6 MG/DL (0.70-1.30); GLOMERULAR FILTRATION RATE 45.5 (>42); POTASSIUM SERUM 6.3 MMOL/L (3.5-5.1)
[2022-10-10 20:15] VITALS: BP 151/65; TEMP 97.5; O2SAT 100
[2022-10-10] MEDS ORDERED: ALBUTEROL SULFATE 2.5MG/0.5ML INH NEB SOLN NEB ONE (20:35)
[2022-10-10 21:00] VITALS: BP 119/58; O2SAT 99
[2022-10-10] MEDS: PANTOPRAZOLE 40MG VIAL IV SCH (21:17)
[2022-10-10 22:00] VITALS: BP 115/59; O2SAT 100
[2022-10-10 23:00] VITALS: BP 124/76; O2SAT 96
[2022-10-11] VITALS (12 sets, daily range): BP systolic 123–166; BP diastolic 62–83; TEMP 96.7–98.2; O2SAT 94–98
[2022-10-11] MEDS: NS 1,000 ML IV SCH ×3 (03:59→21:25)
[2022-10-11 04:36] LABS: BASO # 0.1 10^3/uL (0.0-0.2); BASO % 0.5 % (0.0-1.0); EOS # 0.2 10^3/uL (0.0-0.5); EOS % 1.5 % (0.0-3.0); HEMATOCRIT 29.2 % (42.0-52.0); HEMOGLOBIN 9.6 g/dl (13.5-17.5); LYMPH # 2.8 10^3/uL (1.5-5.0); LYMPH % 18.9 % (24.0-44.0); MEAN CORPUSCULAR HGB CONC 32.9 g/dl (32.0-36.5); MEAN CORPUSCULAR VOLUME 94.2 fl (80.0-96.0); MONO # 1.2 10^3/uL (0.0-0.8); MONO % 8.1 % (2.0-8.0); NEUTROPHILS # 10.3 10^3/uL (1.5-8.5); NEUTROPHILS % 70.5 % (36.0-66.0); PLATELET COUNT, AUTOMATED 159 10^3/uL (150-450); WHITE BLOOD COUNT 14.6 10^3/uL (4.0-10.0)
[2022-10-11 05:14] LABS: ALBUMIN 2.7 G/DL (3.2-5.2); BILIRUBIN,TOTAL 0.5 MG/DL (0.3-1.2); CREATININE FOR GFR 1.9 MG/DL (0.70-1.30); GLOMERULAR FILTRATION RATE 37.3 (>42); MAGNESIUM LEVEL 1.9 MG/DL (1.8-2.4); PHOSPHORUS LEVEL 3.6 MG/DL (2.4-5.1); POTASSIUM SERUM 5.1 MMOL/L (3.5-5.1); TOTAL PROTEIN 4.7 G/DL (5.7-8.2)
[2022-10-11] MEDS: INSULIN LISPRO (NovoLOG) PER UNIT SC SCH ×4 (05:43→23:15)
[2022-10-11] MEDS: PANTOPRAZOLE 40MG VIAL IV SCH ×2 (08:07→21:15)
[2022-10-11] MEDS: metroNIDAZOLE 500 MG in IV 1 EA IV SCH ×2 (15:39→23:13)
[2022-10-11] MEDS ORDERED: fentaNYL 100 MCG/2 ML INJECTION As Ordered ONE (16:02)
[2022-10-11] MEDS ORDERED: propofoL 200 MG/20 ML VIAL As Ordered ONE (16:02)
[2022-10-11] MEDS ORDERED: LIDOCAINE 2% 100MG/5ML SDV (FOR ANES.) As Ordered ONE (16:02)
[2022-10-11] MEDS ORDERED: CIPROFLOXACIN/D5W 400 MG/200 ML BAG As Ordered ONE (17:33)
[2022-10-11] MEDS: CIPROFLOXACIN 400 MG in IV 1 EA IV SCH (17:35)
[2022-10-11 19:08] LABS: HEMATOCRIT 27.9 % (42.0-52.0); HEMOGLOBIN 8.8 g/dl (13.5-17.5); MEAN CORPUSCULAR HEMOGLOBIN 30.9 pg (27.0-33.0); MEAN CORPUSCULAR HGB CONC 31.5 g/dl (32.0-36.5); MEAN CORPUSCULAR VOLUME 97.9 fl (80.0-96.0); PLATELET COUNT, AUTOMATED 150 10^3/uL (150-450); RED BLOOD COUNT 2.85 10^6/uL (4.30-6.10); WHITE BLOOD COUNT 10.1 10^3/uL (4.0-10.0)
[2022-10-11] MEDS: SUCRALFATE SUSP 1GM/10ML UD PO SCH (21:15)
[2022-10-12] VITALS: BP 154/64; TEMP 97.4; O2SAT 97
[2022-10-12 04:00] VITALS: BP 131/60; TEMP 96.8; O2SAT 95
[2022-10-12] MEDS: CIPROFLOXACIN 400 MG in IV 1 EA IV SCH (04:23)
[2022-10-12 04:57] LABS: BASO # 0.1 10^3/uL (0.0-0.2); BASO % 0.7 % (0.0-1.0); EOS # 0.3 10^3/uL (0.0-0.5); EOS % 3.7 % (0.0-3.0); HEMATOCRIT 25.5 % (42.0-52.0); HEMOGLOBIN 8.2 g/dl (13.5-17.5); LYMPH # 1.7 10^3/uL (1.5-5.0); LYMPH % 19.7 % (24.0-44.0); MEAN CORPUSCULAR HEMOGLOBIN 30.9 pg (27.0-33.0); MEAN CORPUSCULAR HGB CONC 32.2 g/dl (32.0-36.5); MEAN CORPUSCULAR VOLUME 96.2 fl (80.0-96.0); MONO # 0.8 10^3/uL (0.0-0.8); NEUTROPHILS # 5.7 10^3/uL (1.5-8.5); NEUTROPHILS % 66.6 % (36.0-66.0); PLATELET COUNT, AUTOMATED 136 10^3/uL (150-450); RED BLOOD COUNT 2.65 10^6/uL (4.30-6.10); WHITE BLOOD COUNT 8.6 10^3/uL (4.0-10.0)
[2022-10-12 05:26] LABS: ALBUMIN 2.6 G/DL (3.2-5.2); BILIRUBIN,TOTAL 0.4 MG/DL (0.3-1.2); CALCIUM LEVEL 7.7 MG/DL (8.3-10.6); CREATININE FOR GFR 1.67 MG/DL (0.70-1.30); GLOMERULAR FILTRATION RATE 43.3 (>42); MAGNESIUM LEVEL 1.7 MG/DL (1.8-2.4); POTASSIUM SERUM 4.6 MMOL/L (3.5-5.1); TOTAL PROTEIN 4.5 G/DL (5.7-8.2)
[2022-10-12] MEDS: INSULIN LISPRO (NovoLOG) PER UNIT SC SCH ×3 (06:00→18:11)
[2022-10-12] MEDS: metroNIDAZOLE 500 MG in IV 1 EA IV SCH (06:17)
[2022-10-12] MEDS: SUCRALFATE SUSP 1GM/10ML UD PO SCH ×4 (07:36→21:06)
[2022-10-12 08:00] VITALS: BP 159/77; TEMP 97.4; O2SAT 97
[2022-10-12] MEDS ORDERED: MAG SULF 1GM/100ML (MAG RUN) 1 GM in IV 1 EA IV ONE (08:00)
[2022-10-12] MEDS: PANTOPRAZOLE 40MG VIAL IV SCH (09:05)
[2022-10-12] MEDS: ASPIRIN 81MG ENTERIC TABLET PO SCH (09:53)
[2022-10-12 10:49] LABS: HEMATOCRIT 26.6 % (42.0-52.0); HEMOGLOBIN 8.4 g/dl (13.5-17.5); MEAN CORPUSCULAR HEMOGLOBIN 30.7 pg (27.0-33.0); MEAN CORPUSCULAR HGB CONC 31.6 g/dl (32.0-36.5); MEAN CORPUSCULAR VOLUME 97.1 fl (80.0-96.0); PLATELET COUNT, AUTOMATED 144 10^3/uL (150-450); RED BLOOD COUNT 2.74 10^6/uL (4.30-6.10); WHITE BLOOD COUNT 8.3 10^3/uL (4.0-10.0)
[2022-10-12 12:00] VITALS: BP 142/61; TEMP 97.9; O2SAT 98
[2022-10-12] MEDS ORDERED: PANT40TA29 PO (14:16)
[2022-10-12] MEDS ORDERED: SUCR1ORA PO (14:16)
[2022-10-12] MEDS ORDERED: METR-265 PO (14:16)
[2022-10-12] MEDS ORDERED: CIPR-249 PO (14:16)
[2022-10-12] MEDS ORDERED: BACI1CAP PO (14:17)
[2022-10-12] MEDS ORDERED: SELF1KIT MC (14:19)
[2022-10-12] MEDS: metroNIDAZOLE (FLAGYL) 500MG TABLET PO SCH ×2 (14:45→22:32)
[2022-10-12] MEDS: allopurinoL 300 MG TAB PO SCH (14:46)
[2022-10-12] MEDS: MULTIVITAMINS/MINERALS THERAP 1 TAB PO SCH (14:47)
[2022-10-12] MEDS: CYANOCOBALAMIN 500 MCG TAB PO SCH (14:48)
[2022-10-12 15:48] VITALS: BP 143/90; TEMP 97.9; O2SAT 99
[2022-10-12] MEDS: OCUVITE 1 TAB PO SCH (18:11)
[2022-10-12] MEDS: SITagliptin 50 MG TAB (JANUVIA) PO SCH (18:11)
[2022-10-12] MEDS: CIPROFLOXACIN 500MG TABLET PO SCH (18:11)
[2022-10-12 20:00] VITALS: BP 127/55; TEMP 98.4; O2SAT 98
[2022-10-12] MEDS ORDERED: MAGNESIUM GLUCONATE 500 MG TAB PO SCH (21:00)
[2022-10-12] MEDS ORDERED: SIMVASTATIN 40 MG TAB PO SCH (21:00)
[2022-10-12] MEDS ORDERED: CARVedilol 12.5 MG TAB PO SCH (21:00)
[2022-10-12] MEDS ORDERED: INSULIN LISPRO (NovoLOG) PER UNIT SC SCH (21:00)
[2022-10-12] MEDS: PANTOPRAZOLE 40MG TAB (PROTONIX) PO SCH (21:07)
[2022-10-12 22:04] LABS: HEMATOCRIT 25.5 % (42.0-52.0); HEMOGLOBIN 8.1 g/dl (13.5-17.5)
[2022-10-13 04:00] VITALS: BP 130/56; TEMP 97.5; O2SAT 98
[2022-10-13 05:50] LABS: HEMATOCRIT 26.1 % (42.0-52.0); HEMOGLOBIN 8.2 g/dl (13.5-17.5); MEAN CORPUSCULAR HEMOGLOBIN 30.6 pg (27.0-33.0); MEAN CORPUSCULAR HGB CONC 31.4 g/dl (32.0-36.5); MEAN CORPUSCULAR VOLUME 97.4 fl (80.0-96.0); PLATELET COUNT, AUTOMATED 151 10^3/uL (150-450); RED BLOOD COUNT 2.68 10^6/uL (4.30-6.10); WHITE BLOOD COUNT 8.5 10^3/uL (4.0-10.0)
[2022-10-13] MEDS: metroNIDAZOLE (FLAGYL) 500MG TABLET PO SCH (06:11)
[2022-10-13] MEDS: CIPROFLOXACIN 500MG TABLET PO SCH (06:12)
[2022-10-13 06:13] LABS: CREATININE FOR GFR 1.62 MG/DL (0.70-1.30); GLOMERULAR FILTRATION RATE 44.8 (>42); POTASSIUM SERUM 4.3 MMOL/L (3.5-5.1)
[2022-10-13] MEDS ORDERED: CARA1TAB6 PO (06:39)
[2022-10-13] MEDS: allopurinoL 300 MG TAB PO SCH (07:53)
[2022-10-13] MEDS: SUCRALFATE SUSP 1GM/10ML UD PO SCH (07:53)
[2022-10-13] MEDS: ASPIRIN 81MG ENTERIC TABLET PO SCH (07:53)
[2022-10-13 07:54] VITALS: BP 137/58
[2022-10-13] MEDS: SITagliptin 50 MG TAB (JANUVIA) PO SCH (07:54)
[2022-10-13] MEDS: CYANOCOBALAMIN 500 MCG TAB PO SCH (07:54)
[2022-10-13] MEDS: PANTOPRAZOLE 40MG TAB (PROTONIX) PO SCH (07:54)
[2022-10-13] MEDS: MULTIVITAMINS/MINERALS THERAP 1 TAB PO SCH (07:55)
[2022-10-13] MEDS: INSULIN LISPRO (NovoLOG) PER UNIT SC SCH (07:55)
[2022-10-13] MEDS: OCUVITE 1 TAB PO SCH (07:55)
[2022-10-13] MEDS ORDERED: CARVedilol 12.5 MG TAB PO SCH (09:00)
== END 2022-10-13 10:15 | disposition home health service (06) | DRG 378 ==
LOC: M ED 13:19 → M ED INP 15:01 → M ICU 20:10 → M MSPAV 10-12 15:42
PROVIDERS: ADMIT Internal Medicine Critical Care Medicine; ATTEND General Practice
PROC: 30233N1 Transfusion of Nonautologous Red Blood Cells into Peripheral Vein, Percutaneous Approach (ICD-10-PCS; 2022-10-10)
PROC: 0DJD8ZZ Inspection of Lower Intestinal Tract, Via Natural or Artificial Opening Endoscopic (ICD-10-PCS; 2022-10-11)
PROC: 0W3P8ZZ Control Bleeding in Gastrointestinal Tract, Via Natural or Artificial Opening Endoscopic (ICD-10-PCS; principal; 2022-10-11 16:45)
DX: K28.4 Chronic or unspecified gastrojejunal ulcer with hemorrhage (principal); Z68.42 Body mass index [BMI] 45.0-49.9, adult; D62 Acute posthemorrhagic anemia; K55.9 Vascular disorder of intestine, unspecified; K92.0 Hematemesis; K92.1 Melena; E11.9 Type 2 diabetes mellitus without complications; K64.8 Other hemorrhoids; I10 Essential (primary) hypertension; E87.5 Hyperkalemia; R60.0 Localized edema; I25.10 Atherosclerotic heart disease of native coronary artery without angina pectoris; E66.9 Obesity, unspecified; Z98.84 Bariatric surgery status; Z87.891 Personal history of nicotine dependence; Z95.810 Presence of automatic (implantable) cardiac defibrillator; Z95.1 Presence of aortocoronary bypass graft; Z79.82 Long term (current) use of aspirin; Z79.84 Long term (current) use of oral hypoglycemic drugs; Z79.899 Other long term (current) drug therapy; Z88.2 Allergy status to sulfonamides

== ENCOUNTER → 2022-11-01 | Outpatient (REF) | payer MEDICARE, BC ==
[~2022-11-01] MED LIST changes: +ALLO300T2 PO; +BACI1CAP PO; +CARA1TAB6 PO; +GLIM1TAB4 PO; +METR-265 PO; +PANT40TA29 PO; +SELF1KIT MC; +SUCR1ORA PO; +VALS80TA PO
== END ==
LOC: M LAB REF 16:22
PROVIDERS: ATTEND Nurse Practitioner Family
DX: Z95.810 Presence of automatic (implantable) cardiac defibrillator (principal)

== ENCOUNTER 2022-11-10 07:58 | Day surgery (SDC) | payer MEDICARE, BC ==
[~2022-11-10] VITALS: Ht 177.8 cm; Wt 150.0 kg
[~2022-11-10 07:58] MED LIST changes: +LIDOCAINE 2% 100MG/5ML SDV (FOR ANES.) As Ordered ONE; +NS 1,000 ML IV ONE; +fentaNYL 100 MCG/2 ML INJECTION As Ordered ONE; +propofoL 500 MG/50 ML VIAL As Ordered ONE
[2022-11-10] MEDS ORDERED: ePHEDrine SULFATE 25 MG/5 ML(5MG/ML) SYRINGE As Ordered ONE (09:46)
[2022-11-10] MEDS ORDERED: propofoL 200 MG/20 ML VIAL As Ordered ONE (09:59)
[2022-11-10 10:19] VITALS: TEMP 97.6
[2022-11-10 10:35] VITALS: BP 141/63; O2SAT 97
== END 2022-11-10 10:48 | disposition home or self-care (01) ==
LOC: M OPP 07:58
PROVIDERS: ATTEND Internal Medicine Gastroenterology
DX: Z12.11 Encounter for screening for malignant neoplasm of colon (principal); D12.6 Benign neoplasm of colon, unspecified; K57.30 Diverticulosis of large intestine without perforation or abscess without bleeding; K64.4 Residual hemorrhoidal skin tags; K64.8 Other hemorrhoids; Z98.0 Intestinal bypass and anastomosis status; Z87.891 Personal history of nicotine dependence; Z79.02 Long term (current) use of antithrombotics/antiplatelets; Z79.82 Long term (current) use of aspirin; Z79.84 Long term (current) use of oral hypoglycemic drugs; Z79.899 Other long term (current) drug therapy; Z88.1 Allergy status to other antibiotic agents
CPT/HCPCS: 43247; 45385; 88305; J3010

== ENCOUNTER 2023-05-19 06:57 | Inpatient (IN) | payer MEDICARE ==
[~2023-05-19] VITALS: Ht 177.8 cm; Wt 149.1 kg
[2023-05-19] VITALS (8 sets, daily range): BP systolic 114–158; BP diastolic 56–76; TEMP 97.3–98.3; O2SAT 97–100
[~2023-05-19 06:57] MED LIST changes: -LIDOCAINE 2% 100MG/5ML SDV (FOR ANES.) As Ordered ONE; -NS 1,000 ML IV ONE; -SENN1TAB41 PO; +SENN1TAB85 PO; -fentaNYL 100 MCG/2 ML INJECTION As Ordered ONE; -propofoL 500 MG/50 ML VIAL As Ordered ONE
[2023-05-19 07:35] LABS: BASO # 0.1 10^3/uL (0.0-0.2); BASO % 0.4 % (0.0-1.0); EOS # 0.3 10^3/uL (0.0-0.5); EOS % 1.9 % (0.0-3.0); HEMATOCRIT 26.6 % (42.0-52.0); HEMOGLOBIN 8.8 g/dl (13.5-17.5); LYMPH # 2.8 10^3/uL (1.5-5.0); LYMPH % 20.5 % (24.0-44.0); MEAN CORPUSCULAR HEMOGLOBIN 31.8 pg (27.0-33.0); MEAN CORPUSCULAR HGB CONC 33.1 g/dl (32.0-36.5); MONO # 1.1 10^3/uL (0.0-0.8); MONO % 7.9 % (2.0-8.0); NEUTROPHILS # 9.2 10^3/uL (1.5-8.5); NEUTROPHILS % 68.7 % (36.0-66.0); PLATELET COUNT, AUTOMATED 191 10^3/uL (150-450); RED BLOOD COUNT 2.77 10^6/uL (4.30-6.10); WHITE BLOOD COUNT 13.4 10^3/uL (4.0-10.0)
[2023-05-19] MEDS: NS 1,000 ML IV SCH (07:38)
[2023-05-19] MEDS: PANTOPRAZOLE SODIUM 40 MG in D5W 50 ML IV SCH (07:45)
[2023-05-19] MEDS: PANTOPRAZOLE 40MG VIAL IV ONE (07:45)
[2023-05-19 07:56] LABS: INR 1.16; PARTIAL THROMBOPLASTIN TIME 27.5 SECONDS (24.8-34.2); PROTHROMBIN TIME 14.5 SECONDS (12.5-14.5)
[2023-05-19 07:59] LABS: ALBUMIN 2.7 G/DL (3.2-5.2); BILIRUBIN,DIRECT 0.1 MG/DL (<0.4); BILIRUBIN,TOTAL 0.3 MG/DL (0.3-1.2); CALCIUM LEVEL 8.4 MG/DL (8.3-10.6); CREATININE FOR GFR 2.07 MG/DL (0.70-1.30); GLOMERULAR FILTRATION RATE 33.8 (>42); POTASSIUM SERUM 5.6 MMOL/L (3.5-5.1); TOTAL PROTEIN 5.1 G/DL (5.7-8.2)
[2023-05-19] MEDS: NS 1,000 ML IV ONE (08:05)
[2023-05-19] MEDS: MORPHINE 2 MG/ML 1ML VIAL IV ONE (09:53)
[2023-05-19] MEDS ORDERED: GLUCAGON INJ 1MG VIAL SC PRN (11:25)
[2023-05-19] MEDS ORDERED: GLUCOSE 4GM CHEW TABLET PO PRN (11:25)
[2023-05-19] MEDS ORDERED: DEXTROSE 50% 50ML SYRINGE IV PRN (11:25)
[2023-05-19] MEDS ORDERED: MOM 30ML SUSPENSION UDC PO PRN (11:25)
[2023-05-19] MEDS: DEXTROSE 50% 50ML SYRINGE IV STA (11:36)
[2023-05-19] MEDS: CALCIUM GLUCONATE 1,000 MG in D5W MINI-BAG PLUS 100 ML IV ONE (11:36)
[2023-05-19] MEDS ORDERED: MAGN400C PO (11:38)
[2023-05-19] MEDS ORDERED: THERTAB52 PO (11:38)
[2023-05-19] MEDS: HumuLIN R (REGULAR) INSULIN (NovoLIN R) **100U/ML** PER UNIT IV ONE (11:38)
[2023-05-19] MEDS ORDERED: CARV25TA PO (11:38)
[2023-05-19] MEDS ORDERED: PANT40TA29 PO (11:38)
[2023-05-19 12:49] LABS: RSV AMPLIFICATION NEGATIVE (NEGATIVE)
[2023-05-19] MEDS: INSULIN LISPRO (NovoLOG) PER UNIT SC SCH ×2 (13:02→18:21)
[2023-05-19] MEDS ORDERED: HOME MED LIST COMPLETE! XX SCH (13:05)
[2023-05-19] MEDS: LR 1,000 ML IV SCH (13:30)
[2023-05-19 15:09] LABS: HEMATOCRIT 29.5 % (42.0-52.0); HEMOGLOBIN 9.6 g/dl (13.5-17.5)
[2023-05-19] MEDS: SUCRALFATE 1 GM TAB PO SCH (17:14)
[2023-05-19 20:45] LABS: HEMATOCRIT 27.8 % (42.0-52.0); HEMOGLOBIN 9.2 g/dl (13.5-17.5)
[2023-05-19] MEDS ORDERED: DOCUSATE SODIUM 100MG CAPSULE PO SCH (21:00)
[2023-05-19] MEDS ORDERED: INSULIN LISPRO (NovoLOG) PER UNIT SC SCH (21:00)
[2023-05-20] VITALS (9 sets, daily range): BP systolic 116–158; BP diastolic 53–70; TEMP 96.9–97.9; O2SAT 96–99
[2023-05-20] MEDS: ACETAMINOPHEN TAB 650MG DOSE (2X325MG) PO PRN (01:51)
[2023-05-20 02:02] LABS: HEMATOCRIT 26.5 % (42.0-52.0); HEMOGLOBIN 8.7 g/dl (13.5-17.5)
[2023-05-20 06:36] LABS: BASO # 0.1 10^3/uL (0.0-0.2); BASO % 0.5 % (0.0-1.0); EOS # 0.4 10^3/uL (0.0-0.5); EOS % 3.1 % (0.0-3.0); HEMATOCRIT 24.3 % (42.0-52.0); HEMOGLOBIN 8.2 g/dl (13.5-17.5); LYMPH # 2.2 10^3/uL (1.5-5.0); LYMPH % 17.3 % (24.0-44.0); MEAN CORPUSCULAR HEMOGLOBIN 31.5 pg (27.0-33.0); MEAN CORPUSCULAR HGB CONC 33.7 g/dl (32.0-36.5); MEAN CORPUSCULAR VOLUME 93.5 fl (80.0-96.0); NEUTROPHILS % 70.3 % (36.0-66.0); PLATELET COUNT, AUTOMATED 168 10^3/uL (150-450); WHITE BLOOD COUNT 12.8 10^3/uL (4.0-10.0)
[2023-05-20 06:57] LABS: CALCIUM LEVEL 8.3 MG/DL (8.3-10.6); CREATININE FOR GFR 2.16 MG/DL (0.70-1.30); GLOMERULAR FILTRATION RATE 32.2 (>42); POTASSIUM SERUM 4.7 MMOL/L (3.5-5.1)
[2023-05-20] MEDS: FUROSEMIDE 20MG/2ML VIAL IV ONE (09:52)
[2023-05-20] MEDS: CARVedilol 12.5 MG TAB PO SCH (11:12)
[2023-05-20] MEDS ORDERED: fentaNYL 100 MCG/2 ML INJECTION As Ordered ONE (12:01)
[2023-05-20] MEDS ORDERED: LIDOCAINE 2% 100MG/5ML SDV (FOR ANES.) As Ordered ONE (12:02)
[2023-05-20] MEDS ORDERED: propofoL 200 MG/20 ML VIAL As Ordered ONE (12:02)
[2023-05-20] MEDS ORDERED: ONDANSETRON 4MG 2ML VIAL As Ordered ONE (12:03)
[2023-05-20] MEDS ORDERED: ONDANSETRON 4MG 2ML VIAL IV PRN (13:30)
[2023-05-20] MEDS ORDERED: LR 1,000 ML IV SCH (13:30)
[2023-05-20] MEDS ORDERED: HYDROMORPHONE HCL 0.5 MG/ 0.5 ML SYRINGE IV PRN (13:30)
[2023-05-20] MEDS ORDERED: oxyCODONE 5MG TAB PO PRN (13:30)
[2023-05-20] MEDS ORDERED: fentaNYL 100 MCG/2 ML INJECTION IV PRN (13:30)
[2023-05-20] MEDS ORDERED: DEXTROSE 50% 50ML SYRINGE IV PRN (13:30)
[2023-05-20] MEDS ORDERED: GLUCAGON INJ 1MG VIAL SC PRN (13:30)
[2023-05-20] MEDS ORDERED: GLUCOSE 4GM CHEW TABLET PO PRN (13:30)
[2023-05-20] MEDS: INSULIN LISPRO (NovoLOG) PER UNIT SC PRN (13:54)
[2023-05-20 14:39] LABS: HEMATOCRIT 25.6 % (42.0-52.0); HEMOGLOBIN 8.7 g/dl (13.5-17.5)
[2023-05-20] MEDS: SODIUM BICARBONATE 325 MG TAB PO SCH (17:19)
[2023-05-20] MEDS: INSULIN LISPRO (NovoLOG) PER UNIT SC SCH ×2 (17:20→20:54)
[2023-05-20 20:28] LABS: HEMATOCRIT 26.6 % (42.0-52.0); HEMOGLOBIN 8.8 g/dl (13.5-17.5)
[2023-05-20] MEDS: PANTOPRAZOLE 40MG VIAL IV SCH (20:54)
[2023-05-20] MEDS: SIMVASTATIN 40 MG TAB PO SCH (20:54)
[2023-05-21] VITALS (7 sets, daily range): BP systolic 109–145; BP diastolic 53–65; TEMP 96.9–97.8; O2SAT 95–98
[2023-05-21 07:52] LABS: BASO # 0.1 10^3/uL (0.0-0.2); BASO % 0.6 % (0.0-1.0); EOS # 0.3 10^3/uL (0.0-0.5); EOS % 2.7 % (0.0-3.0); HEMATOCRIT 26.3 % (42.0-52.0); HEMOGLOBIN 8.7 g/dl (13.5-17.5); LYMPH # 1.7 10^3/uL (1.5-5.0); LYMPH % 15.6 % (24.0-44.0); MEAN CORPUSCULAR HEMOGLOBIN 31.3 pg (27.0-33.0); MEAN CORPUSCULAR HGB CONC 33.1 g/dl (32.0-36.5); MEAN CORPUSCULAR VOLUME 94.6 fl (80.0-96.0); MONO # 0.9 10^3/uL (0.0-0.8); MONO % 8.6 % (2.0-8.0); NEUTROPHILS # 7.6 10^3/uL (1.5-8.5); NEUTROPHILS % 71.7 % (36.0-66.0); PLATELET COUNT, AUTOMATED 162 10^3/uL (150-450); RED BLOOD COUNT 2.78 10^6/uL (4.30-6.10); WHITE BLOOD COUNT 10.6 10^3/uL (4.0-10.0)
[2023-05-21 08:17] LABS: CALCIUM LEVEL 7.9 MG/DL (8.3-10.6); CREATININE FOR GFR 2.03 MG/DL (0.70-1.30); GLOMERULAR FILTRATION RATE 34.5 (>42); MAGNESIUM LEVEL 1.7 MG/DL (1.8-2.4); POTASSIUM SERUM 4.3 MMOL/L (3.5-5.1)
[2023-05-21 14:02] LABS: HEMOGLOBIN A1c 6.7 % (4.0-6.0)
[2023-05-21] MEDS: MAGNESIUM OXIDE 400MG TAB (MAG-OX) PO SCH (14:34)
[2023-05-21] MEDS: PANTOPRAZOLE 40MG TAB (PROTONIX) PO SCH (20:58)
[2023-05-21] MEDS: LEVEMIR (INSULIN DETEMIR) 1 UNITS/0.01ML SC SCH (20:59)
[2023-05-22 00:20] VITALS: BP 101/57; TEMP 98.6; O2SAT 96
[2023-05-22 04:01] VITALS: BP 118/78; TEMP 97.4; O2SAT 96
[2023-05-22 04:01] LABS: BASO % 0.5 % (0.0-1.0); EOS # 0.3 10^3/uL (0.0-0.5); EOS % 3.3 % (0.0-3.0); HEMATOCRIT 24.5 % (42.0-52.0); HEMOGLOBIN 8.1 g/dl (13.5-17.5); LYMPH # 1.5 10^3/uL (1.5-5.0); LYMPH % 19.9 % (24.0-44.0); MEAN CORPUSCULAR HEMOGLOBIN 30.7 pg (27.0-33.0); MEAN CORPUSCULAR HGB CONC 33.1 g/dl (32.0-36.5); MEAN CORPUSCULAR VOLUME 92.8 fl (80.0-96.0); MONO # 0.7 10^3/uL (0.0-0.8); NEUTROPHILS % 66.9 % (36.0-66.0); PLATELET COUNT, AUTOMATED 164 10^3/uL (150-450); RED BLOOD COUNT 2.64 10^6/uL (4.30-6.10); WHITE BLOOD COUNT 7.5 10^3/uL (4.0-10.0)
[2023-05-22 04:29] LABS: CALCIUM LEVEL 7.8 MG/DL (8.3-10.6); CREATININE FOR GFR 1.81 MG/DL (0.70-1.30); GLOMERULAR FILTRATION RATE 39.4 (>42); MAGNESIUM LEVEL 1.8 MG/DL (1.8-2.4); POTASSIUM SERUM 3.9 MMOL/L (3.5-5.1)
[2023-05-22 07:49] VITALS: BP 109/53; TEMP 96.7; O2SAT 97
[2023-05-22 11:58] VITALS: BP 102/50; TEMP 96.7; O2SAT 97
[2023-05-22 19:23] VITALS: BP 139/63; TEMP 97; O2SAT 99
[2023-05-23 03:23] VITALS: BP 118/60; TEMP 97; O2SAT 95
[2023-05-23 05:48] LABS: BASO # 0.1 10^3/uL (0.0-0.2); BASO % 0.6 % (0.0-1.0); EOS # 0.3 10^3/uL (0.0-0.5); EOS % 3.8 % (0.0-3.0); HEMATOCRIT 26.7 % (42.0-52.0); HEMOGLOBIN 8.7 g/dl (13.5-17.5); LYMPH % 21.5 % (24.0-44.0); MEAN CORPUSCULAR HEMOGLOBIN 31.2 pg (27.0-33.0); MEAN CORPUSCULAR HGB CONC 32.6 g/dl (32.0-36.5); MEAN CORPUSCULAR VOLUME 95.7 fl (80.0-96.0); MONO # 0.9 10^3/uL (0.0-0.8); MONO % 9.5 % (2.0-8.0); NEUTROPHILS # 5.8 10^3/uL (1.5-8.5); PLATELET COUNT, AUTOMATED 189 10^3/uL (150-450); RED BLOOD COUNT 2.79 10^6/uL (4.30-6.10); WHITE BLOOD COUNT 9.1 10^3/uL (4.0-10.0)
[2023-05-23 06:06] LABS: CALCIUM LEVEL 8.1 MG/DL (8.3-10.6); CREATININE FOR GFR 1.73 MG/DL (0.70-1.30); GLOMERULAR FILTRATION RATE 41.5 (>42); MAGNESIUM LEVEL 1.9 MG/DL (1.8-2.4); POTASSIUM SERUM 4.1 MMOL/L (3.5-5.1)
[2023-05-23 08:04] VITALS: BP 150/66; TEMP 96.8; O2SAT 97
[2023-05-23] MEDS: ASPIRIN 81MG ENTERIC TABLET PO SCH (12:36)
[2023-05-23 16:00] VITALS: BP 148/60; TEMP 97.6; O2SAT 98
[2023-05-23 19:38] VITALS: BP 136/63; TEMP 97.8; O2SAT 96
[2023-05-23] MEDS: LEVEMIR (INSULIN DETEMIR) 1 UNITS/0.01ML SC SCH (20:35)
[2023-05-23 20:36] VITALS: BP 130/52
[2023-05-24 03:56] VITALS: BP 128/59; TEMP 98.1; O2SAT 98
[2023-05-24 06:30] VITALS: BP 126/57; TEMP 97.3; O2SAT 98
[2023-05-24 06:33] LABS: BASO # 0.1 10^3/uL (0.0-0.2); BASO % 0.6 % (0.0-1.0); EOS # 0.3 10^3/uL (0.0-0.5); HEMATOCRIT 25.9 % (42.0-52.0); HEMOGLOBIN 8.5 g/dl (13.5-17.5); LYMPH # 1.8 10^3/uL (1.5-5.0); LYMPH % 17.8 % (24.0-44.0); MEAN CORPUSCULAR HEMOGLOBIN 31.6 pg (27.0-33.0); MEAN CORPUSCULAR HGB CONC 32.8 g/dl (32.0-36.5); MEAN CORPUSCULAR VOLUME 96.3 fl (80.0-96.0); MONO # 0.9 10^3/uL (0.0-0.8); MONO % 8.7 % (2.0-8.0); NEUTROPHILS # 7.2 10^3/uL (1.5-8.5); NEUTROPHILS % 69.2 % (36.0-66.0); PLATELET COUNT, AUTOMATED 201 10^3/uL (150-450); RED BLOOD COUNT 2.69 10^6/uL (4.30-6.10); WHITE BLOOD COUNT 10.3 10^3/uL (4.0-10.0)
[2023-05-24 07:07] LABS: CALCIUM LEVEL 7.7 MG/DL (8.3-10.6); CREATININE FOR GFR 1.77 MG/DL (0.70-1.30); GLOMERULAR FILTRATION RATE 40.5 (>42); MAGNESIUM LEVEL 1.9 MG/DL (1.8-2.4)
[2023-05-24] MEDS ORDERED: CARV12.5 PO (11:13)
[2023-05-24] MEDS ORDERED: LANTINJ4 SC (11:13)
[2023-05-24] MEDS ORDERED: SUCR1TA PO (11:13)
[2023-05-24] MEDS ORDERED: LANC30MI XX (11:13)
[2023-05-24] MEDS ORDERED: GLUC1TES2 XX (11:13)
[2023-05-24] MEDS ORDERED: MAGN400T2 PO (11:13)
[2023-05-24] MEDS ORDERED: PEN-308 SC (11:13)
[2023-05-24] MEDS ORDERED: PANT40TA29 PO (11:13)
[2023-05-24 14:00] VITALS: BP 128/52; TEMP 97.9; O2SAT 98
== END 2023-05-24 15:29 | disposition home or self-care (01) | DRG 378 ==
LOC: M ED 06:57 → M ED INP 12:15 → M PCU 17:23 → M MSPAV 05-24 03:49
PROVIDERS: ADMIT Internal Medicine; ATTEND Internal Medicine
PROC: 30233N1 Transfusion of Nonautologous Red Blood Cells into Peripheral Vein, Percutaneous Approach (ICD-10-PCS; 2023-05-19)
PROC: 0W3P8ZZ Control Bleeding in Gastrointestinal Tract, Via Natural or Artificial Opening Endoscopic (ICD-10-PCS; principal; 2023-05-20 12:45)
DX: K28.4 Chronic or unspecified gastrojejunal ulcer with hemorrhage (principal); N17.9 Acute kidney failure, unspecified; I50.22 Chronic systolic (congestive) heart failure; D62 Acute posthemorrhagic anemia; E87.20 Acidosis, unspecified; I13.0 Hypertensive heart and chronic kidney disease with heart failure and stage 1 through stage 4 chronic kidney disease, or unspecified chronic kidney disease; Z68.42 Body mass index [BMI] 45.0-49.9, adult; I25.5 Ischemic cardiomyopathy; I25.10 Atherosclerotic heart disease of native coronary artery without angina pectoris; E78.5 Hyperlipidemia, unspecified; E11.22 Type 2 diabetes mellitus with diabetic chronic kidney disease; M10.9 Gout, unspecified; E86.0 Dehydration; D64.9 Anemia, unspecified; E66.01 Morbid (severe) obesity due to excess calories; K80.20 Calculus of gallbladder without cholecystitis without obstruction; N18.9 Chronic kidney disease, unspecified; E87.5 Hyperkalemia; Z79.82 Long term (current) use of aspirin; Z79.84 Long term (current) use of oral hypoglycemic drugs; Z79.899 Other long term (current) drug therapy; Z88.2 Allergy status to sulfonamides; Z95.810 Presence of automatic (implantable) cardiac defibrillator; Z95.1 Presence of aortocoronary bypass graft; Z87.891 Personal history of nicotine dependence; Z98.84 Bariatric surgery status; Z96.649 Presence of unspecified artificial hip joint

== ENCOUNTER → 2023-06-03 | Outpatient (REF) | payer MEDICARE ==
[~2023-06-03] MED LIST changes: +CARV12.5 PO; +GLUC1TES2 XX; +LANC30MI XX; +LANTINJ4 SC; +MAGN400C PO; +MAGN400T2 PO; +PEN-308 SC; +SUCR1TA PO; +THERTAB52 PO
[2023-06-03 13:31] LABS: PERCENT SATURATION 5.6 % (19.7-50.0)
[2023-06-03 13:32] LABS: FERRITIN 9.5 NG/ML (10.5-307.3)
== END ==
LOC: M LAB REF 12:43
PROVIDERS: ATTEND Family Medicine
DX: D64.9 Anemia, unspecified (principal)

== ENCOUNTER → 2023-06-17 | Outpatient (REF) | payer MEDICARE | LOC: M LAB REF 12:16 | PROVIDERS: ATTEND Family Medicine | DX: D50.0 Iron deficiency anemia secondary to blood loss (chronic) (principal); I50.22 Chronic systolic (congestive) heart failure ==

== ENCOUNTER 2023-06-22 09:29 | Outpatient (CLI) | payer MEDICARE ==
[~2023-06-22] VITALS: Ht 177.8 cm; Wt 149.0 kg
[2023-06-22 09:04] VITALS: BP 138/62; O2SAT 96
[~2023-06-22 09:29] MED LIST changes: +ALBUTEROL SULFATE 2.5MG/0.5ML INH NEB SOLN INH PRN; +EPINEPHrine INJ 1 MG/ML 1ML AMP IM PRN; +NS 1,000 ML IV SCH; +diphenhydrAMINE 50MG/ML VIAL IV PRN; +methylPREDNISolone 125MG 2ML VIAL IV PRN
[2023-06-22] MEDS: IRON SUCROSE 25 MG in NS 23.75 ML IV ONE (09:39)
[2023-06-22 09:50] VITALS: BP 122/58; O2SAT 95
[2023-06-22 10:45] VITALS: BP 129/59; O2SAT 97
[2023-06-22] MEDS: IRON SUCROSE 300 MG in NS 250 ML OVER 90 MIN. IV ONE (10:50)
[2023-06-22 11:05] VITALS: BP 136/63; O2SAT 99
[2023-06-22 12:00] VITALS: BP 133/64
[2023-06-22 12:26] VITALS: BP 133/64; O2SAT 98
== END 2023-06-22 12:55 ==
LOC: M INFU 09:29
PROVIDERS: ATTEND Family Medicine
DX: D50.9 Iron deficiency anemia, unspecified (principal); Z88.2 Allergy status to sulfonamides
CPT/HCPCS: 96365; 96366; J1756

== ENCOUNTER 2023-07-08 08:30 | Outpatient (CLI) | payer MEDICARE ==
[~2023-07-08] VITALS: Ht 177.8 cm; Wt 149.0 kg
[2023-07-08 08:30] VITALS: BP 154/70; O2SAT 97
[~2023-07-08 08:30] MED LIST changes: +IRON SUCROSE 300 MG in NS 250 ML OVER 90 MIN. IV ONE
[2023-07-08] MEDS: IRON SUCROSE 25 MG in NS 23.75 ML IV ONE (09:03)
[2023-07-08] MEDS: IRON SUCROSE 275 MG in NS 250 ML IV ONE (09:04)
[2023-07-08 10:50] VITALS: BP 160/71; O2SAT 99
== END 2023-07-08 10:50 | disposition home or self-care (01) ==
LOC: M INFU 08:30
PROVIDERS: ATTEND Family Medicine
DX: D50.9 Iron deficiency anemia, unspecified (principal); Z88.2 Allergy status to sulfonamides
CPT/HCPCS: 96365; J1756

== ENCOUNTER → 2023-08-26 | Outpatient (REF) | payer MEDICARE ==
[~2023-08-26] MED LIST changes: -ALBUTEROL SULFATE 2.5MG/0.5ML INH NEB SOLN INH PRN; -EPINEPHrine INJ 1 MG/ML 1ML AMP IM PRN; -GLIM1TAB4 PO; +GLIM1TAB84 PO; -IRON SUCROSE 300 MG in NS 250 ML OVER 90 MIN. IV ONE; -NS 1,000 ML IV SCH; -diphenhydrAMINE 50MG/ML VIAL IV PRN; -methylPREDNISolone 125MG 2ML VIAL IV PRN
[2023-08-26 14:32] LABS: FERRITIN 13.9 NG/ML (10.5-307.3)
[2023-08-26 14:35] LABS: PERCENT SATURATION 16.1 % (19.7-50.0)
== END ==
LOC: M LAB REF 12:54
PROVIDERS: ATTEND Family Medicine
DX: D50.9 Iron deficiency anemia, unspecified (principal)

== ENCOUNTER → 2024-01-23 | Outpatient (REF) | payer MEDICARE | LOC: M LAB REF 12:27 | PROVIDERS: ATTEND Family Medicine | DX: D50.0 Iron deficiency anemia secondary to blood loss (chronic) (principal); N18.32 Chronic kidney disease, stage 3b ==

== ENCOUNTER 2025-01-02 10:51 | Day surgery (SDC) | payer MEDICARE ==
[~2025-01-02] VITALS: Ht 177.8 cm; Wt 155.1 kg
[~2025-01-02 10:51] MED LIST changes: +CARV6.25 PO; +MIDAZOLAM INJ 2 MG/2 ML VIAL As Ordered ONE; +PHENYLEPHRINE 10% OPHTH SOL 5ML OS PRN; +SENN-225 PO; -SENO8.6T5 PO; +SLOW1TAB3 PO
[2025-01-02] MEDS: OFLOXACIN 0.3 % (OCUFLOX) OPTH SOL 5ML OS ONE (11:25)
[2025-01-02] MEDS: LIDOCAINE 3.5% 1 ML OPHTH TOPICAL GEL OU ONE (11:25)
[2025-01-02] MEDS: PHENYLEPHRINE 2.5% OPHTH SOL 2ML OS SCH (11:26)
[2025-01-02] MEDS: CYCLOPENTOLATE 1% OPHTH SOLN 2 ML BTL OS SCH (11:26)
[2025-01-02] MEDS: TROPICAMIDE 1% OPHTH SOLN 15ML OS SCH (11:26)
[2025-01-02 12:49] VITALS: BP 195/84
[2025-01-02] MEDS: LABETALOL 100 MG TAB PO ONE (12:49)
[2025-01-02] MEDS: BSS IRRIG/VANCO(10MG)/TOBRA(5MG)/EPINEPH(1:1000-0.5CC)500ML BAG-ORONLY As Ordered ONE (14:06)
[2025-01-02] MEDS: LIDOCAINE 1% SDV 5 ML VIAL As Ordered ONE (14:06)
[2025-01-02] MEDS: CEFUROXIME 1 MG/0.1 ML INTRACAMERAL INJ As Ordered ONE (14:12)
[2025-01-02 14:30] VITALS: BP 131/62; TEMP 96.8; O2SAT 97
== END 2025-01-02 14:45 | disposition home or self-care (01) ==
LOC: M SDC 10:51
PROVIDERS: ATTEND Ophthalmology
DX: E11.36 Type 2 diabetes mellitus with diabetic cataract (principal); H25.12 Age-related nuclear cataract, left eye; I25.5 Ischemic cardiomyopathy; I25.10 Atherosclerotic heart disease of native coronary artery without angina pectoris; I50.9 Heart failure, unspecified; E11.40 Type 2 diabetes mellitus with diabetic neuropathy, unspecified; I25.2 Old myocardial infarction; N28.9 Disorder of kidney and ureter, unspecified; Z79.899 Other long term (current) drug therapy; Z95.0 Presence of cardiac pacemaker; Z98.84 Bariatric surgery status; Z79.82 Long term (current) use of aspirin; Z79.84 Long term (current) use of oral hypoglycemic drugs; Z79.4 Long term (current) use of insulin; Z95.1 Presence of aortocoronary bypass graft; Z98.41 Cataract extraction status, right eye; M10.9 Gout, unspecified; Z88.2 Allergy status to sulfonamides
CPT/HCPCS: 66984; J0697; J2250; J3010; V2632